=== PATIENT | male | born 1965 | race African-American/Black ===

== ENCOUNTER 2017-04-24 23:06 | Emergency (ER) | payer SELFPAY ==
[~2017-04-24] VITALS: Ht 170.2 cm; Wt 75.0 kg
[2017-04-24 23:12] VITALS: TEMP 37.7; Ht 170.2 cm; Wt 75.0 kg
[2017-04-24] MEDS ORDERED: ALBUT/IPRATROP 3MG/0.5MG NEB 3 ML VIAL INH STA (23:20)
[2017-04-25 00:09] LABS: BASO % 0.4 %; BASO ABS # 0.02 K/uL (0-0.2); EOS % 3.7 %; EOS ABS # 0.18 K/uL (0-0.5); HEMATOCRIT 37.8 % (42-52); HEMOGLOBIN 13.3 g/dL (14.0-18.0); IG# 0.01 K/uL (0.00-0.02); LYMPH % 27.6 %; LYMPH ABS # 1.33 K/uL (1.2-3.4); MEAN CELL VOLUME 85.1 fL (80-100); MEAN CORPUSCULAR HGB CONC 35.2 g/dl (32-36); MEAN PLATELET VOLUME 10.4 fL (7.4-10.4); MONO % 15.4 %; MONO ABS # 0.74 K/uL (0.11-0.59); NEUT % 52.7 %; NEUT ABS # 2.54 K/uL (1.4-6.5); PLATELET COUNT 194 K/uL (130-400); RED CELL DISTRIBUTION WIDTH CV 12.3 % (11.5-14.5); RED CELL DISTRIBUTION WIDTH SD 38.3 fL (36.4-46.3); WHITE BLOOD COUNT 4.82 K/uL (4.8-10.8)
[2017-04-25 00:27] LABS: ALBUMIN 3.3 gm/dl (3.4-5.0); ALT/SGPT 35 U/L (12-78); AST/SGOT 20 U/L (15-37); BLOOD UREA NITROGEN 15 mg/dl (7-18); CALCIUM 8.9 mg/dl (8.5-10.1); CARBON DIOXIDE 26 mmol/L (21-32); CREATININE 1.29 mg/dl (0.60-1.40); GLUCOSE 188 mg/dl (70-99); POTASSIUM 4.2 mmol/L (3.5-5.1); SODIUM 133 mmol/L (136-145)
[2017-04-25 00:30] LABS: ALKALINE PHOSPHATASE 118 U/L (45-117); TOTAL PROTEIN 7.4 gm/dl (6.4-8.2)
--- NOTE | 2017-04-25 01:11 | EMERGENCY ROOM VISIT NOTE ---
History Report prepared by Douglas: Pito [place] Under the Supervision of: Dr. Kateryna Painting M.D. First contact with patient: 23:16 Chief Complaint: COUGH Stated Complaint: CANT BREATH,COUGH History of Present Illness The patient is a 52 year old male who presents to the Emergency Room with complaints of a persistent cough beginning four days ago. He also complains of shortness of breath, lower abdominal pain, and fevers. He states that his symptoms have been preventing him from sleeping. The patient states that his cough is "uncontrollable". He is not a smoker. He has a history of diabetes and states that his blood sugar was 260 recently. Source of History: patient Onset: Four days ago Quality: other (cough) Timing: other (persistent) Associated Symptoms: + fevers, + SOB, + abdominal pain (lower) Review of Systems See HPI for pertinent positives & negatives. A total of 10 systems reviewed and were otherwise negative. Past Medical & Surgical Medical Problems: (1) Diabetes mellitus Family History No pertinent family history stated. Social History Smoking Status: Never Smoker Alcohol Use: none Marital Status: Housing Status: lives with family Occupation Status: unemployed Current/Historical Medications Scheduled Carvedilol (Coreg), 50 MG PO DAILY Esomeprazole Magnesium (Nexium), 40 MG PO DAILY Gabapentin (Neurontin), 300 MG PO HS Insulin Glargine (Lantus Solostar), 45 UNITS SC QPM Insulin Lispro (Human) (Humalog), SQ TIDM Lisinopril (Zestril), 40 MG PO DAILY Scheduled PRN Amlodipine (Norvasc), 10 MG PO DAILY PRN for htn Allergies Coded Allergies: Acetaminophen (Verified Adverse Reaction, Unknown, upset stomach, 04/24/17 ) Physical Exam Vital Signs Date Time Temp Pulse Resp B/P (MAP) Pulse Ox O2 Delivery O2 Flow Rate FiO2 04/25/17 01:23 86 18 133/76 96 04/25/17 00:43 84 16 125/74 96 Room Air 04/25/17 00:03 85 04/24/17 23:17 93 Room Air 04/24/17 23:12 37.7 96 18 122/79 95 Room Air Physical Exam Vital signs reviewed. General: Well-appearing male, in no significant distress. Malodorous. Disheveled , clothes appear dirty. HEENT: No scleral icterus, PERRLA, neck supple. Atraumatic. Cardiovascular: Regular rate and rhythm, no extra sounds. Pulmonary: Faint scattered wheezes bilaterally. Cough noted. Abdomen: Soft, nontender, nondistended, positive bowel sounds. Musculoskeletal: Atraumatic, no peripheral edema. Neurologic: Patient awake alert and oriented x 3, full strength in all 4 extremities. Cranial nerves 2 through 12 grossly intact. Skin: Warm, dry, no rash Medical Decision & Procedures ER Provider Diagnostic Interpretation: Two View Chest X-ray interpreted by me: Poor inspiratory effort. No focal lung consolidation. No failure appreciated. Laboratory Results 04/25/17 00:00 Red Blood Count 4.44, Mean Corpuscular Volume 85.1, Mean Corpuscular Hemoglobin 30.0, Mean Corpuscular Hemoglobin Concent 35.2, Mean Platelet Volume 10.4, Neutrophils (%) (Auto) 52.7, Lymphocytes (%) (Auto) 27.6, Monocytes (%) (Auto) 15.4, Eosinophils (%) (Auto) 3.7, Basophils (%) (Auto) 0.4, Neutrophils # (Auto ) 2.54, Lymphocytes # (Auto) 1.33, Monocytes # (Auto) 0.74, Eosinophils # (Auto ) 0.18, Basophils # (Auto) 0.02 04/25/17 00:00 Test 04/24/17 23:28 04/25/17 00:00 Bedside Glucose 289 mg/dl (70-99) White Blood Count 4.82 K/uL (4.8-10.8) Red Blood Count 4.44 M/uL (4.7-6.1) Hemoglobin 13.3 g/dL (14.0-18.0) Hematocrit 37.8 % (42-52) Mean Corpuscular Volume 85.1 fL (80-100) Mean Corpuscular Hemoglobin 30.0 pg (25-34) Mean Corpuscular Hemoglobin Concent 35.2 g/dl (32-36) Platelet Count 194 K/uL (130-400) Mean Platelet Volume 10.4 fL (7.4-10.4) Neutrophils (%) (Auto) 52.7 % Lymphocytes (%) (Auto) 27.6 % Monocytes (%) (Auto) 15.4 % Eosinophils (%) (Auto) 3.7 % Basophils (%) (Auto) 0.4 % Neutrophils # (Auto) 2.54 K/uL (1.4-6.5) Lymphocytes # (Auto) 1.33 K/uL (1.2-3.4) Monocytes # (Auto) 0.74 K/uL (0.11-0.59) Eosinophils # (Auto) 0.18 K/uL (0-0.5) Basophils # (Auto) 0.02 K/uL (0-0.2) RDW Standard Deviation 38.3 fL (36.4-46.3) RDW Coefficient of Variation 12.3 % (11.5-14.5) Immature Granulocyte % (Auto) 0.2 % Immature Granulocyte # (Auto) 0.01 K/uL (0.00-0.02) Anion Gap 5.0 mmol/L (3-11) Est Creatinine Clear Calc Drug Dose 61.9 ml/min Estimated GFR () 72.9 Estimated GFR (Non- 62.9 BUN/Creatinine Ratio 11.9 (10-20) Calcium Level 8.9 mg/dl (8.5-10.1) Total Bilirubin 0.3 mg/dl (0.2-1) Direct Bilirubin < 0.1 mg/dl (0-0.2) Aspartate Amino Transf (AST/SGOT) 20 U/L (15-37) Alanine Aminotransferase (ALT/SGPT) 35 U/L (12-78) Alkaline Phosphatase 118 U/L (45-117) Total Protein 7.4 gm/dl (6.4-8.2) Albumin 3.3 gm/dl (3.4-5.0) Laboratory results per my review. Medications Administered Medications (Trade) Dose Ordered Sig/Lisseth Route Start Time Stop Time Status Last Admin Dose Admin Albuterol/ Ipratropium (Duoneb) 3 ml NOW STAT INH 04/24/17 23:20 04/24/17 23:23 DC 04/24/17 23:30 3 ML ED Course 2319: Past medical records reviewed. The patient was evaluated in room B3B. A complete history and physical examination was performed. 2320: Ordered DuoNeb 3 mL INH. 0110: Upon reevaluation, the patient appeared to have improvement of his symptoms. I discussed findings with him. He verbalized agreement of the treatment plan. 0115: Ordered Hycodan Elix Homepack 5/1.5 mg/5 mL PO, Albuterol 2 puffs INH. The patient was discharged home. Medical Decision Differential diagnosis: Etiologies such as infections, reactive airway disease, pneumonia, pneumothorax , COPD, CHF, cardiac ischemia, pulmonary embolism, musculoskeletal, gastrointestinal, as well as others were entertained. This patient was in evaluated and appeared to be in no significant distress. IV access was obtained and laboratory work was drawn. The patient was found to be in no respiratory distress. He was given a DuoNeb treatment. Chest x-ray is clear. Patient's laboratory work is unrevealing. The patient will be discharged with an albuterol inhaler and Hycodan cough syrup. He was advised that this will take several days to a week to improve. Patient will follow-up with his PCP and return to the ER for worsening of symptoms or any medical concerns. Medication Reconcilliation Current Medication List: was personally reviewed by me Blood Pressure Screening Patient's blood pressure: Normal blood pressure Blood pressure disposition: Did not require urgent referral Impression Primary Impression: Reactive airway disease with wheezing Scribe Attestation The scribe's documentation has been prepared under my direction and personally reviewed by me in its entirety. I confirm that the note above accurately reflects all work, treatment, procedures, and medical decision making performed by me. Departure Information Dispostion Home / Self-Care Forms HOME CARE DOCUMENTATION FORM, IMPORTANT VISIT INFORMATION Patient Instructions My [facility] Additional Instructions Diagnosis: Reactive airway disease with wheezing Continue albuterol inhaler 2 puffs every 4 hours as needed for wheezing or cough. Hycodan syrup 5-10 mL's every 6 hours as needed for cough. Do not drive after taking this medication. Follow-up with your physician upon return home. Return to the ER for worsening of symptoms or any medical concerns.
[2017-04-25] MEDS ORDERED: HYCODAN 60ML BOTTLE HOMEPACK PO ONE (01:15)
[2017-04-25] MEDS ORDERED: ALBUTEROL HFA 8 GM INHALER INH ONE (01:15)
[2017-04-25 01:23] VITALS: BP 133/76; PULSE 86; O2SAT 96
[2017-04-25] MEDS ORDERED: INSDGIPEN SC (01:26)
[2017-04-25] MEDS ORDERED: AMLO10TA3 PO (01:26)
[2017-04-25] MEDS ORDERED: INSU100I SQ (01:26)
[2017-04-25] MEDS ORDERED: GABA-113 PO (01:26)
[2017-04-25] MEDS ORDERED: LISI40TA PO (01:26)
[2017-04-25] MEDS ORDERED: CARV25TA2 PO (01:27)
[2017-04-25] MEDS ORDERED: NXM/40 PO (01:27)
--- NOTE | 2017-04-25 06:21 | DIAGNOSTIC IMAGING REPORT ---
CHEST 2 VIEWS ROUTINE CLINICAL HISTORY: 52 years-old Male presenting with cough, fever, dyspnea. TECHNIQUE: PA and lateral views of the chest were obtained. COMPARISON: None. FINDINGS: Left subclavian implanted cardiac defibrillator with lead to the right ventricular apex. Elevation of the hemidiaphragms with resulting mildly low lung volumes and hypoventilatory changes. Prominent lung markings at the lung bases. Trace bilateral pleural effusions may be present. No pneumothorax. Degenerative changes of the thoracic spine. Moderate stool burden. IMPRESSION: 1. Mildly low lung volumes with hypoventilatory changes. Findings could also suggest possible volume overload. 2. Trace bilateral pleural effusions suspected. 3. Moderate stool burden. Electronically signed by: Nate Szymanski M.D. 04/25/2017 6:19 AM Dictated Date/Time: 04/25/2017 6:18 AM
== END 2017-04-25 01:24 | disposition home or self-care (01) ==
LOC: C.EDB 23:08
DX: J45.909 Unspecified asthma, uncomplicated (principal); E11.9 Type 2 diabetes mellitus without complications; Z79.4 Long term (current) use of insulin

== ENCOUNTER 2021-10-02 16:41 | Observation (INO) ==
[2021-10-02] MEDS ORDERED: ONDANSETRON INJ 2 MG/ML 2 ML VIAL ONE (16:45)
[2021-10-02] MEDS ORDERED: DEXTROSE 50% 50 ML SYRINGE IV STA (17:07)
[2021-10-02] MEDS ORDERED: ONDANSETRON INJ 2 MG/ML 2 ML VIAL IV STA (17:07)
[2021-10-02] MEDS ORDERED: SODIUM CHLORIDE 0.9% 1000ML 2,000 ML IV ONE (17:07)
--- NOTE | 2021-10-02 17:09 | Emergency Department Note ---
Impression & Plan Hypoglycemia, Vomiting, Abdominal pain, Headache, Acute hypokalemia, MICKEY (acute kidney injury) ED Provider Note NAME: MANAV XIE AGE: 56 SEX: M : 1965 ARRIVES VIA: Ambulance INFORMANT: Patient ED PROVIDER(S): Demetrius Dawn DO CHIEF COMPLAINT: abdominal pain HPI: Patient is a 56-year-old male with past medical history of cardiomyopathy which was nonischemic, defibrillator placed, diabetic, hypertension, hyperlipidemia who presents to the ER from the [facility] parking lot. He notes he has been vomiting for the past hour. He is complaining of abdominal pain and headache. Abdominal pain started with nausea and vomiting. The headache started after all the vomiting. He denies any dysuria, urgency, or frequency. He is able to admit that he is a diabetic and he did take his insulin today. Denies any chest pain or shortness of breath. No other exacerbating or remitting factors. ROS: See above HPI for pertinent positives & negatives. A total of 10 systems reviewed and were otherwise negative. PAST MEDICAL HISTORY:See Below PAST SURGICAL HISTORY:See Below FAMILY HISTORY:See Below SOCIAL HISTORY:See Below HOME MEDICATIONS:See Below ALLERGIES:See Below VITALS:See Below PHYSICAL EXAMINATION: GENERAL: Laying in bed disheveled, holding abdomen, EYE EXAM: normal conjunctiva. OROPHARYNX: no exudate, no erythema, lips, buccal mucosa, and tongue normal and mucous membranes are moist NECK: supple, no nuchal rigidity, no adenopathy, non-tender LUNGS: Clear to auscultation. Normal chest wall mechanics HEART: no murmurs, S1 normal and S2 normal ABDOMEN: abdomen soft, non-tender, normo-active bowel sounds, no masses, no rebound or guarding. UPPER EXTREMITIES: upper extremities are grossly normal. LOWER EXTREMITIES: No pitting edema. NEURO EXAM: Tired but oriented to person place year and location cranial nerves II-XII grossly intact, normal speech, no gross weakness of arms, no gross weakness of legs. No drift. Finger to nose intact. Gross sensation intact. MEDICAL DECISION MAKING: Patient is a 56-year-old male who presents ER for above-stated complaint. IV was established blood work was obtained. Labs show no significant leukocytosis or anemia. BMP without mild hyponatremia. Hypokalemia at 3.2. Creatinine was elevated 2.4 off of a baseline of 1.2. He had multiple bouts of hypoglycemia and was initially given orange juice. He still continued to bottom out and consequently was given D50. He was then placed on D10 and this was titrated up from 100-125. Bilirubin LFTs and lipase is unremarkable. CT head abdomen pelvis was unremarkable with the exception of airspace opacities in the lower chest. Patient was given IV fluids as well as IV Rocephin and azithromycin and was updated bedside and discussed with hospitalist for further evaluation. Triage Nursing notes reviewed. Limited review of prior medical records performed Vital Signs: reviewed and remarkable for HTN Differential diagnosis: Differential diagnoses includes but is not limited to gastritis, peptic ulcer disease, GERD, gallbladder disease, pancreatitis, small bowel obstruction, acute coronary syndrome, pericarditis, ischemic bowel, irritable bowel disease, irr itable bowel syndrome, appendicitis, diverticulitis, malignancy, hernia, urinary tract infection, torsion, perforation, trauma, infectious. ER treatment provided: See below Diagnostics interpreted by me: ECG: none Cardiac Monitoring: An order was placed for continuous cardiac monitoring. The monitor shows a rate of 90 with sinus rhythm. Laboratory studies: As stated above and show below. Imaging studies: CT head and abdomen pelvis was unremarkable with exception of questionable infiltrates in the chest in the lower lung benoit Consultation(s): Discussed with hospitalist for further evaluation Procedures: none Critical Care: I have personally spent 32 minutes of critical care time in the direct management of this patient. This includes bedside care, interpretation of diagnostic studies, and testing, discussion with consultants, patient, and family members, and other required patient management activities. This 32 minutes is in excess of all separately billable procedures. Past Med/Surg History Medical History Acid reflux disease Cardiac defibrillator in place Cardiomyopathy, nonischemic Cerumen impaction Depression Diabetes mellitus Diabetes mellitus type 2, uncontrolled Diabetic peripheral neuropathy Hearing decreased Hyperlipidemia Hypertension His blood pressure is somewhat labile- I am not certain if he is taking all of meds as directed. I will add HCTZ 12.5 to hopefully stabilze things a little and provide some reassurance Irregular heartbeat Pelvic pain in male Proteinuria Psoriasis Psoriatic arthropathy Family History Father Diabetes Cardiac disorder Hypertension Mother Cancer Social History Smoking Status: Never smoker Preferred Language: Greenlandic Feels Safe at Home: Yes Allergies Allergies Allergy/AdvReac Type Severity Reaction Status Date / Time peanut Allergy Severe Anaphylaxis Verified 10/02/21 17:24 prednisone Allergy Severe SEVERE GI Verified 10/02/21 17:24 UPSET acetaminophen AdvReac Intermediate upset Verified 10/02/21 17:24 stomach Home Meds Home Medications Medication Instructions Recorded Confirmed gabapentin 300 mg capsule 300 mg PO HS 10/22/18 10/02/21 imipramine pamoate 100 mg capsule 100 mg PO HS 10/22/18 10/02/21 insulin glargine 100 unit/mL 45 unit SUBCUT HS 10/22/18 10/02/21 subcutaneous solution (Lantus U-100 Insulin) omeprazole 20 mg tablet,delayed 20 mg PO DAILY 10/22/18 10/02/21 release adalimumab 40 mg/0.4 mL See Rx Instructions .ROUTE .COMPLEX 08/22/21 10/02/21 subcutaneous pen kit (Humira(CF) Pen) amlodipine 10 mg tablet 10 mg PO DAILY 08/22/21 10/02/21 carvedilol 25 mg tablet 25 mg PO BID 08/22/21 10/02/21 insulin lispro 100 unit/mL 12 - 14 unit SUBCUT AC 08/22/21 10/02/21 subcutaneous pen (Humalog KwikPen (U-100) Insulin) meclizine 25 mg tablet 25 mg PO TID PRN 08/22/21 10/02/21 tadalafil 20 mg tablet (Cialis) 20 mg PO DAILY PRN 08/22/21 10/02/21 Previous Rx's Medication Instructions Recorded hydrochlorothiazide 12.5 mg tablet 12.5 mg PO DAILY #30 tab 10/27/18 lisinopril 40 mg tablet 40 mg PO DAILY #90 tab 02/17/19 Results & Data (ED) Vital Signs Vital Signs - 24 hr 10/02/21 16:35 10/02/21 16:50 10/02/21 17:00 Temperature Temperature Source Pulse Rate 66 64 54 L Pulse Rate [Apical] Pulse Rate from SpO2 Sensor 60 54 L Pulse Rhythm Regular Pulse Rhythm [Apical] Pulse Strength Normal Pulse Strength [Apical] Respiratory Rate 21 20 23 Respiratory Effort / Characteristics Non-Labored Respiratory Depth Normal Blood Pressure 150/87 H Blood Pressure [Right Arm] Blood Pressure Mean 108 Blood Pressure Mean [Right Arm] Blood Pressure Position Sitting Pulse Oximetry 95 96 91 Oxygen Delivery Method Room Air Oxygen Flow Rate Sepsis Recent Fever Within 48 Hours No Sepsis New/Unexplained Change in Mental Status N/A Sepsis Action Taken by Nursing No Action Required 10/02/21 17:05 10/02/21 17:10 10/02/21 17:16 Temperature Temperature Source Pulse Rate 56 L 58 L 52 L Pulse Rate [Apical] Pulse Rate from SpO2 Sensor 56 L 58 L 52 L Pulse Rhythm Pulse Rhythm [Apical] Pulse Strength Pulse Strength [Apical] Respiratory Rate 20 16 22 Respiratory Effort / Characteristics Respiratory Depth Blood Pressure 161/83 H 187/87 H Blood Pressure [Right Arm] Blood Pressure Mean 109 120 Blood Pressure Mean [Right Arm] Blood Pressure Position Pulse Oximetry 95 95 95 Oxygen Delivery Method Oxygen Flow Rate Sepsis Recent Fever Within 48 Hours Sepsis New/Unexplained Change in Mental Status Sepsis Action Taken by Nursing 10/02/21 17:20 10/02/21 17:29 10/02/21 17:30 Temperature Temperature Source Pulse Rate 54 L 56 L 53 L Pulse Rate [Apical] Pulse Rate from SpO2 Sensor 54 L 53 L Pulse Rhythm Pulse Rhythm [Apical] Pulse Strength Pulse Strength [Apical] Respiratory Rate 21 18 17 Respiratory Effort / Characteristics Respiratory Depth Blood Pressure 126/59 L Blood Pressure [Right Arm] Blood Pressure Mean 81 Blood Pressure Mean [Right Arm] Blood Pressure Position Pulse Oximetry 89 L 93 92 Oxygen Delivery Method Room Air Oxygen Flow Rate Sepsis Recent Fever Within 48 Hours Sepsis New/Unexplained Change in Mental Status Sepsis Action Taken by Nursing 10/02/21 17:40 10/02/21 17:45 10/02/21 17:50 Temperature Temperature Source Pulse Rate 58 L 58 L 62 Pulse Rate [Apical] Pulse Rate from SpO2 Sensor 58 L 58 L 62 Pulse Rhythm Pulse Rhythm [Apical] Pulse Strength Pulse Strength [Apical] Respiratory Rate 19 19 21 Respiratory Effort / Characteristics Respiratory Depth Blood Pressure 157/89 H Blood Pressure [Right Arm] Blood Pressure Mean 111 Blood Pressure Mean [Right Arm] Blood Pressure Position Pulse Oximetry 95 96 99 Oxygen Delivery Method Oxygen Flow Rate Sepsis Recent Fever Within 48 Hours Sepsis New/Unexplained Change in Mental Status Sepsis Action Taken by Nursing 10/02/21 18:00 10/02/21 18:10 10/02/21 18:15 Temperature Temperature Source Pulse Rate 54 L 54 L 54 L Pulse Rate [Apical] Pulse Rate from SpO2 Sensor 53 L 53 L 54 L Pulse Rhythm Pulse Rhythm [Apical] Pulse Strength Pulse Strength [Apical] Respiratory Rate 14 16 18 Respiratory Effort / Characteristics Respiratory Depth Blood Pressure 128/72 121/61 Blood Pressure [Right Arm] Blood Pressure Mean 90 81 Blood Pressure Mean [Right Arm] Blood Pressure Position Pulse Oximetry 97 94 93 Oxygen Delivery Method Oxygen Flow Rate Sepsis Recent Fever Within 48 Hours Sepsis New/Unexplained Change in Mental Status Sepsis Action Taken by Nursing 10/02/21 18:20 10/02/21 18:30 10/02/21 18:36 Temperature Temperature Source Pulse Rate 53 L 52 L Pulse Rate [Apical] 57 L Pulse Rate from SpO2 Sensor Pulse Rhythm Pulse Rhythm [Apical] Pulse Strength Pulse Strength [Apical] Respiratory Rate 14 4 L 16 Respiratory Effort / Characteristics Respiratory Depth Normal Blood Pressure 128/63 Blood Pressure [Right Arm] 128/63 Blood Pressure Mean 84 Blood Pressure Mean [Right Arm] 84 Blood Pressure Position Pulse Oximetry 97 Oxygen Delivery Method Room Air Oxygen Flow Rate Sepsis Recent Fever Within 48 Hours Sepsis New/Unexplained Change in Mental Status Sepsis Action Taken by Nursing 10/02/21 18:40 10/02/21 18:45 10/02/21 18:50 Temperature Temperature Source Pulse Rate 54 L 54 L 56 L Pulse Rate [Apical] Pulse Rate from SpO2 Sensor 53 L 52 L Pulse Rhythm Pulse Rhythm [Apical] Pulse Strength Pulse Strength [Apical] Respiratory Rate 12 8 L 13 Respiratory Effort / Characteristics Respiratory Depth Blood Pressure 134/66 Blood Pressure [Right Arm] Blood Pressure Mean 88 Blood Pressure Mean [Right Arm] Blood Pressure Position Pulse Oximetry 99 99 Oxygen Delivery Method Oxygen Flow Rate Sepsis Recent Fever Within 48 Hours Sepsis New/Unexplained Change in Mental Status Sepsis Action Taken by Nursing 10/02/21 18:54 10/02/21 19:12 10/02/21 19:14 Temperature 36.5 C Temperature Source Oral Pulse Rate 58 L Pulse Rate [Apical] Pulse Rate from SpO2 Sensor 61 Pulse Rhythm Pulse Rhythm [Apical] Pulse Strength Pulse Strength [Apical] Respiratory Rate 25 H 18 Respiratory Effort / Characteristics Respiratory Depth Blood Pressure 195/95 H Blood Pressure [Right Arm] Blood Pressure Mean 128 Blood Pressure Mean [Right Arm] Blood Pressure Position Pulse Oximetry 97 Oxygen Delivery Method Oxygen Flow Rate Sepsis Recent Fever Within 48 Hours Sepsis New/Unexplained Change in Mental Status Sepsis Action Taken by Nursing 10/02/21 19:15 10/02/21 19:20 10/02/21 19:30 Temperature Temperature Source Pulse Rate 60 60 59 L Pulse Rate [Apical] Pulse Rate from SpO2 Sensor 57 L 59 L 59 L Pulse Rhythm Pulse Rhythm [Apical] Pulse Strength Pulse Strength [Apical] Respiratory Rate 19 23 22 Respiratory Effort / Characteristics Respiratory Depth Blood Pressure 190/88 H Blood Pressure [Right Arm] Blood Pressure Mean 122 Blood Pressure Mean [Right Arm] Blood Pressure Position Pulse Oximetry 96 97 98 Oxygen Delivery Method Oxygen Flow Rate Sepsis Recent Fever Within 48 Hours Sepsis New/Unexplained Change in Mental Status Sepsis Action Taken by Nursing 10/02/21 19:40 10/02/21 19:45 10/02/21 19:50 Temperature Temperature Source Pulse Rate 64 61 66 Pulse Rate [Apical] Pulse Rate from SpO2 Sensor 64 62 65 Pulse Rhythm Pulse Rhythm [Apical] Pulse Strength Pulse Strength [Apical] Respiratory Rate 20 19 18 Respiratory Effort / Characteristics Respiratory Depth Blood Pressure 173/88 H Blood Pressure [Right Arm] Blood Pressure Mean 116 Blood Pressure Mean [Right Arm] Blood Pressure Position Pulse Oximetry 97 89 L 100 Oxygen Delivery Method Oxygen Flow Rate Sepsis Recent Fever Within 48 Hours Sepsis New/Unexplained Change in Mental Status Sepsis Action Taken by Nursing 10/02/21 20:00 10/02/21 20:10 10/02/21 20:16 Temperature Temperature Source Pulse Rate 62 81 77 Pulse Rate [Apical] 62 Pulse Rate from SpO2 Sensor Pulse Rhythm Pulse Rhythm [Apical] Pulse Strength Pulse Strength [Apical] Respiratory Rate 18 23 24 Respiratory Effort / Characteristics Respiratory Depth Blood Pressure 223/150 H Blood Pressure [Right Arm] 182/95 H Blood Pressure Mean 174 Blood Pressure Mean [Right Arm] 124 Blood Pressure Position Pulse Oximetry 99 Oxygen Delivery Method Room Air Oxygen Flow Rate Sepsis Recent Fever Within 48 Hours Sepsis New/Unexplained Change in Mental Status Sepsis Action Taken by Nursing 10/02/21 22:00 Temperature 36.8 C Temperature Source Oral Pulse Rate Pulse Rate [Apical] 93 H Pulse Rate from SpO2 Sensor Pulse Rhythm Pulse Rhythm [Apical] Regular Pulse Strength Pulse Strength [Apical] Normal Respiratory Rate 18 Respiratory Effort / Characteristics Non-Labored Respiratory Depth Normal Blood Pressure Blood Pressure [Right Arm] 174/84 H Blood Pressure Mean Blood Pressure Mean [Right Arm] 114 Blood Pressure Position Pulse Oximetry 98 Oxygen Delivery Method Nasal Cannula Oxygen Flow Rate 2 Sepsis Recent Fever Within 48 Hours Sepsis New/Unexplained Change in Mental Status Sepsis Action Taken by Nursing Laboratory Data Result diagrams: 10/02/21 17:03 10/02/21 17:03 Lab Results 10/02/21 10/02/21 10/02/21 Range/Units 16:54 17:03 17:03 WBC 6.76 (4.8-10.8) K/uL RBC 5.16 (4.7-6.1) M/uL Hgb 16.1 (14.0-18.0) g/dL POC Hgb (14.0-18.0) g/dl Hct 44.1 (42-52) % POC Hct (42-52) % MCV 85.5 (80-100) fL MCH 31.2 (25-34) pg MCHC 36.5 H (32-36) g/dL RDW Std Deviation 38.7 (36.4-46.3) fL RDW Coeff of Saulo 12.5 (11.5-14.5) % Plt Count 309 (130-400) K/uL MPV 11.1 H (7.4-10.4) fL Immature Gran % (Auto) 0.1 % Neut % (Auto) 45.0 % Lymph % (Auto) 39.9 % Lanier % (Auto) 13.9 % Eos % (Auto) 1.0 % Baso % (Auto) 0.1 % Neut # (Auto) 3.03 (1.4-6.5) K/uL Lymph # (Auto) 2.70 (1.2-3.4) K/uL Lanier # (Auto) 0.94 H (0.11-0.59) K/uL Eos # (Auto) 0.07 (0-0.5) K/uL Baso # (Auto) 0.01 (0-0.2) K/uL Immature Gran # (Auto) 0.01 (0.00-0.02) K/uL POC Sodium (135-144) mmol/L Sodium 134 L (136-145) mmol/L POC Potassium (3.3-5.0) mmol/L Potassium 3.2 L (3.5-5.1) mmol/L POC Chloride (101-112) mmol/L Chloride 95 L (98-107) mmol/L Carbon Dioxide 26 (21-32) mmol/L POC Total CO2 (24-31) mmol/L Anion Gap 13 H (3-11) POC Anion Gap (16-25) mmol/L POC BUN (7-18) mg/dl BUN 20 (6-23) mg/dl Creatinine 2.48 H (0.6-1.4) mg/dl POC Creatinine (0.6-1.3) mg/dl Est Cr Clr Drug Dosing 31.8 ml/min Est GFR ( Amer) 32.2 ml/min Est GFR (Non-Af Amer) 27.7 ml/min BUN/Creatinine Ratio 8.1 L (10-20) Glucose 22 L* (70-99(Fasting)) mg/dl POC Glucose 63 L* (70-99) mg/dl POC Glucose (other) (70-99) mg/dl Calcium 10.9 H (8.5-10.1) mg/dl POC Ioniz Calcium Kiran (1.12-1.32) mmol/l Total Bilirubin 0.7 (0.2-1.0) mg/dl AST 23 (13-39) U/L ALT 22 (7-52) U/L Alkaline Phosphatase 122 H (34-104) U/L Total Protein 8.7 H (6.0-8.3) gm/dl Albumin 4.6 (3.4-5.0) gm/dl Globulin 4.1 H (2.5-4.0) gm/dl Albumin/Globulin Ratio 1.1 (0.9-2) Lipase 34 (11-82) U/L Procalcitonin (0-0.5) ng/ml 10/02/21 10/02/21 10/02/21 Range/Units 17:03 17:16 17:20 WBC (4.8-10.8) K/uL RBC (4.7-6.1) M/uL Hgb (14.0-18.0) g/dL POC Hgb 16.0 (14.0-18.0) g/dl Hct (42-52) % POC Hct 47 (42-52) % MCV (80-100) fL MCH (25-34) pg MCHC (32-36) g/dL RDW Std Deviation (36.4-46.3) fL RDW Coeff of Saulo (11.5-14.5) % Plt Count (130-400) K/uL MPV (7.4-10.4) fL Immature Gran % (Auto) % Neut % (Auto) % Lymph % (Auto) % Lanier % (Auto) % Eos % (Auto) % Baso % (Auto) % Neut # (Auto) (1.4-6.5) K/uL Lymph # (Auto) (1.2-3.4) K/uL Lanier # (Auto) (0.11-0.59) K/uL Eos # (Auto) (0-0.5) K/uL Baso # (Auto) (0-0.2) K/uL Immature Gran # (Auto) (0.00-0.02) K/uL POC Sodium 137 (135-144) mmol/L Sodium (136-145) mmol/L POC Potassium 3.1 L (3.3-5.0) mmol/L Potassium (3.5-5.1) mmol/L POC Chloride 98 L (101-112) mmol/L Chloride (98-107) mmol/L Carbon Dioxide (21-32) mmol/L POC Total CO2 27 (24-31) mmol/L Anion Gap (3-11) POC Anion Gap 15.0 L (16-25) mmol/L POC BUN 21 H (7-18) mg/dl BUN (6-23) mg/dl Creatinine (0.6-1.4) mg/dl POC Creatinine 2.4 H (0.6-1.3) mg/dl Est Cr Clr Drug Dosing ml/min Est GFR ( Amer) ml/min Est GFR (Non-Af Amer) ml/min BUN/Creatinine Ratio (10-20) Glucose (70-99(Fasting)) mg/dl POC Glucose 62 L* (70-99) mg/dl POC Glucose (other) 26 L* (70-99) mg/dl Calcium (8.5-10.1) mg/dl POC Ioniz Calcium Kiran 1.22 (1.12-1.32) mmol/l Total Bilirubin (0.2-1.0) mg/dl AST (13-39) U/L ALT (7-52) U/L Alkaline Phosphatase (34-104) U/L Total Protein (6.0-8.3) gm/dl Albumin (3.4-5.0) gm/dl Globulin (2.5-4.0) gm/dl Albumin/Globulin Ratio (0.9-2) Lipase (11-82) U/L Procalcitonin 0.05 (0-0.5) ng/ml 10/02/21 10/02/21 10/02/21 Range/Units 17:40 18:31 20:14 WBC (4.8-10.8) K/uL RBC (4.7-6.1) M/uL Hgb (14.0-18.0) g/dL POC Hgb (14.0-18.0) g/dl Hct (42-52) % POC Hct (42-52) % MCV (80-100) fL MCH (25-34) pg MCHC (32-36) g/dL RDW Std Deviation (36.4-46.3) fL RDW Coeff of Saulo (11.5-14.5) % Plt Count (130-400) K/uL MPV (7.4-10.4) fL Immature Gran % (Auto) % Neut % (Auto) % Lymph % (Auto) % Lanier % (Auto) % Eos % (Auto) % Baso % (Auto) % Neut # (Auto) (1.4-6.5) K/uL Lymph # (Auto) (1.2-3.4) K/uL Lanier # (Auto) (0.11-0.59) K/uL Eos # (Auto) (0-0.5) K/uL Baso # (Auto) (0-0.2) K/uL Immature Gran # (Auto) (0.00-0.02) K/uL POC Sodium (135-144) mmol/L Sodium (136-145) mmol/L POC Potassium (3.3-5.0) mmol/L Potassium (3.5-5.1) mmol/L POC Chloride (101-112) mmol/L Chloride (98-107) mmol/L Carbon Dioxide (21-32) mmol/L POC Total CO2 (24-31) mmol/L Anion Gap (3-11) POC Anion Gap (16-25) mmol/L POC BUN (7-18) mg/dl BUN (6-23) mg/dl Creatinine (0.6-1.4) mg/dl POC Creatinine (0.6-1.3) mg/dl Est Cr Clr Drug Dosing ml/min Est GFR ( Amer) ml/min Est GFR (Non-Af Amer) ml/min BUN/Creatinine Ratio (10-20) Glucose (70-99(Fasting)) mg/dl POC Glucose 91 78 67 L* (70-99) mg/dl POC Glucose (other) (70-99) mg/dl Calcium (8.5-10.1) mg/dl POC Ioniz Calcium Kiran (1.12-1.32) mmol/l Total Bilirubin (0.2-1.0) mg/dl AST (13-39) U/L ALT (7-52) U/L Alkaline Phosphatase (34-104) U/L Total Protein (6.0-8.3) gm/dl Albumin (3.4-5.0) gm/dl Globulin (2.5-4.0) gm/dl Albumin/Globulin Ratio (0.9-2) Lipase (11-82) U/L Procalcitonin (0-0.5) ng/ml 10/02/21 10/02/21 Range/Units 20:38 22:30 WBC (4.8-10.8) K/uL RBC (4.7-6.1) M/uL Hgb (14.0-18.0) g/dL POC Hgb (14.0-18.0) g/dl Hct (42-52) % POC Hct (42-52) % MCV (80-100) fL MCH (25-34) pg MCHC (32-36) g/dL RDW Std Deviation (36.4-46.3) fL RDW Coeff of Saulo (11.5-14.5) % Plt Count (130-400) K/uL MPV (7.4-10.4) fL Immature Gran % (Auto) % Neut % (Auto) % Lymph % (Auto) % Lanier % (Auto) % Eos % (Auto) % Baso % (Auto) % Neut # (Auto) (1.4-6.5) K/uL Lymph # (Auto) (1.2-3.4) K/uL Lanier # (Auto) (0.11-0.59) K/uL Eos # (Auto) (0-0.5) K/uL Baso # (Auto) (0-0.2) K/uL Immature Gran # (Auto) (0.00-0.02) K/uL POC Sodium (135-144) mmol/L Sodium (136-145) mmol/L POC Potassium (3.3-5.0) mmol/L Potassium (3.5-5.1) mmol/L POC Chloride (101-112) mmol/L Chloride (98-107) mmol/L Carbon Dioxide (21-32) mmol/L POC Total CO2 (24-31) mmol/L Anion Gap (3-11) POC Anion Gap (16-25) mmol/L POC BUN (7-18) mg/dl BUN (6-23) mg/dl Creatinine (0.6-1.4) mg/dl POC Creatinine (0.6-1.3) mg/dl Est Cr Clr Drug Dosing ml/min Est GFR ( Amer) ml/min Est GFR (Non-Af Amer) ml/min BUN/Creatinine Ratio (10-20) Glucose (70-99(Fasting)) mg/dl POC Glucose 76 225 H (70-99) mg/dl POC Glucose (other) (70-99) mg/dl Calcium (8.5-10.1) mg/dl POC Ioniz Calcium Kiran (1.12-1.32) mmol/l Total Bilirubin (0.2-1.0) mg/dl AST (13-39) U/L ALT (7-52) U/L Alkaline Phosphatase (34-104) U/L Total Protein (6.0-8.3) gm/dl Albumin (3.4-5.0) gm/dl Globulin (2.5-4.0) gm/dl Albumin/Globulin Ratio (0.9-2) Lipase (11-82) U/L Procalcitonin (0-0.5) ng/ml Administered Medications Dextrose (D10w) 1,000 mls @ 100 mls/hr IV .Q10H PANCHO Stop: 11/01/21 17:29 Last Admin: 10/02/21 17:54 Dose: 100 mls/hr Documented by: [id number] Discontinued Medications Dextrose (Dextrose 50% 50 Ml Syringe) 50 ml IV NOW STA Stop: 10/02/21 17:08 Last Admin: 10/02/21 17:23 Dose: 50 ml Documented by: [id number] Sodium Chloride (Nss 1000ml) 2,000 mls @ 999 mls/hr IV .Q2H1M ONE Stop: 10/02/21 19:07 Last Infusion: 10/02/21 18:48 Dose: 0 mls/hr Documented by: [id number] Admin: 10/02/21 17:12 Dose: 999 mls/hr Documented by: [id number] Sodium Chloride (Nss 1000ml) 1,000 mls @ 999 mls/hr IV .Q1H1M ONE Stop: 10/02/21 19:49 Last Infusion: 10/02/21 19:56 Dose: 0 mls/hr Documented by: [id number] Admin: 10/02/21 18:53 Dose: 999 mls/hr Documented by: [id number] Ceftriaxone Sodium (Rocephin) 1,000 mg in 50 mls @ 100 mls/hr IV NOW STA Stop: 10/02/21 20:29 Last Infusion: 10/02/21 21:37 Dose: 0 mls/hr Documented by: [id number] Admin: 10/02/21 20:48 Dose: 100 mls/hr Documented by: [id number] Azithromycin 500 mg/ Dextrose 255 mls @ 125 mls/hr IV ONE ONE Stop: 10/02/21 22:02 Last Admin: 10/02/21 20:48 Dose: 125 mls/hr Documented by: [id number] Morphine Sulfate (Morphine Sulfate 4 Mg/Ml 1 Ml Carp\Vial) 4 mg IV NOW STA Stop: 10/02/21 20:29 Last Admin: 10/02/21 20:48 Dose: 4 mg Documented by: [id number] Ondansetron HCl (Ondansetron Inj 2 Mg/Ml 2 Ml Vial) Confirm Administered Dose 4 mg .ROUTE .STK-MED ONE Stop: 10/02/21 16:46 Last Admin: 10/02/21 17:12 Dose: 4 mg Documented by: [id number] Ondansetron HCl (Ondansetron Inj 2 Mg/Ml 2 Ml Vial) 4 mg IV NOW STA Stop: 10/02/21 17:08 Last Admin: 10/02/21 17:12 Dose: Not Given Documented by: [id number] Potassium Chloride (Potassium Chloride 10 Meq Tabcr) 40 meq PO NOW STA Stop: 10/02/21 21:49 Last Admin: 10/02/21 22:17 Dose: 40 meq Documented by: [id number] Imaging Data Radiologist's Impression: Head CT 10/02/21 17:07 CT SCAN OF THE BRAIN WITHOUT IV CONTRAST CLINICAL HISTORY: Headache. COMPARISON STUDY: CT of the brain dated 11/04/2018. TECHNIQUE: Unenhanced axial CT scan of the brain is performed from the vertex to the skull base. A dose lowering technique was utilized adhering to the principles of ALARA. CT DOSE: 1724.17 mGy.cm FINDINGS: Brain parenchyma: There is mild age advanced involutional change noting mild microangiopathic disease. There is no hemorrhage, mass effect, or evidence of acute territorial ischemia by CT criteria. Agosto-white matter differentiation is preserved. 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 Small chronic lacunar infarcts are also seen in the left basal ganglia. No extra-axial fluid collection is seen. Ventricles, sulci, cisterns: Prominent secondary to involutional change. Intracranial vasculature: There is atherosclerotic calcification of the cavernous carotid and vertebral arteries. Calvarium: Unremarkable. Sinuses and mastoids: The visualized paranasal sinuses are clear. The mastoid air cells are well pneumatized. Orbits: The bony orbits are grossly intact. IMPRESSION: There is no hemorrhage, mass effect, or evidence of acute territorial ischemia by CT criteria. ACT 112: Negative or not required by law. Electronically signed by: Malachi Low M.D. 10/02/2021 7:10 PM Abdomen/Pelvis CT 10/02/21 18:24 CT SCAN OF THE ABDOMEN AND PELVIS WITHOUT IV CONTRAST CLINICAL HISTORY: Generalized abdominal pain. Vomiting. COMPARISON STUDY: No priors. TECHNIQUE: CT scan of the abdomen and pelvis is performed from the lung bases to the proximal femora. Images are reviewed in the axial, sagittal, and coronal planes. IV contrast was not administered for this examination. Note that the examination was performed in suboptimal fashion without oral and IV contrast. A dose lowering technique was utilized adhering to the principles of ALARA. FINDINGS: Lung bases: The heart is enlarged and and without pericardial effusion. Pacemaker leads are noted. Patchy groundglass consolidation is present at both lung bases. No pleural effusion is identified. There is a small to moderate hiatal hernia. Liver: The unenhanced liver is normal in size, contour, and attenuation. There is no intrahepatic biliary ductal dilatation. Gallbladder: Unremarkable. Spleen: Normal in size and attenuation. Pancreas: Unremarkable. Adrenal glands: Unremarkable. Kidneys: The unenhanced kidneys are normal in size and without hydronephrosis. There are at least 5 tiny nonobstructing calculi in the right kidney and at least 4 tiny nonobstructing calculi in the left kidney which measure up to 3 mm. No ureteral stone is seen. An 11 mm cyst is noted in the left kidney. Abdominal vasculature: The abdominal aorta is normal in course and caliber noting mild to moderate atherosclerotic calcification. Bowel: There is moderate colonic fecal retention. No bowel obstruction is seen. The appendix is well-visualized and normal. Peritoneum: There is no intraperitoneal free air or abdominal ascites. There is a fat-containing umbilical hernia. Foci of induration within the ventral abdominal wall are likely to subcutaneous injections. Lymphadenopathy: None. Pelvic viscera: The prostate gland is markedly enlarged and heterogeneous noting median lobe hypertrophy. The bladder wall is thickened and trabeculated indicating chronic outlet obstruction. There are small bilateral fat-containing inguinal hernias. Skeletal structures: No lytic or blastic lesions are seen. IMPRESSION: 1. Patchy groundglass consolidation is seen at both lung bases. The appearance is typical for an infectious/inflammatory pneumonitis and clinical correlation will be required. 2. No acute infectious or inflammatory findings are identified in the abdomen or pelvis. 3. Bilateral nephrolithiasis. 4. Cardiomegaly and cardiac pacemaker. 5. Moderate constipation. 6. Prostatomegaly with evidence of chronic bladder outlet obstruction. 7. Additional findings as above. ACT 112: Negative or not required by law. Electronically signed by: Malachi Low M.D. 10/02/2021 7:21 PM Chest X-Ray 10/02/21 20:00 SINGLE VIEW CHEST CLINICAL HISTORY: Cough. FINDINGS: An AP, portable, upright chest radiograph is compared to study dated 04/25/2017. Correlation is made with abdominal CT performed the same day 10/02/2021. A 2-lead cardiac AICD is unchanged in position and partially obscures the left upper chest. The heart is mildly enlarged. The pulmonary vasculature is noncongested. Mild opacities are seen at the lung bases. There is bibasilar scarring/atelectasis. No large pleural effusion or Pneumothorax is seen. The skeletal structures are osteopenic. The bony thorax is grossly intact. IMPRESSION: 1. There are mild bibasilar airspace opacities. This corresponds to an infectious/inflammatory pneumonitis when correlated with today's CT scan. 2. Cardiomegaly and AICD without radiographic evidence of congestive failure. ACT 112: Negative or not required by law. Electronically signed by: Malachi Low M.D. 10/02/2021 8:18 PM Discharge Plan Visit Data Chief Complaint: Illness ED Provider: Demetrius Dawn Discharge Problem: Hypoglycemia, Vomiting, Abdominal pain, Headache, Acute hypokalemia, MICKEY (acute kidney injury) Forms Stand Alone Forms: [facility] [employer] Prescriptions Prescriptions: No Action lisinopril 40 mg tablet 40 mg PO DAILY Qty: 90 RF: 3 hydrochlorothiazide 12.5 mg tablet 12.5 mg PO DAILY Qty: 30 RF: 2 insulin glargine [Lantus U-100 Insulin] 100 unit/mL Solution 45 unit SUBCUT HS RF: 0 imipramine pamoate 100 mg Capsule 100 mg PO HS RF: 0 gabapentin 300 mg Capsule 300 mg PO HS RF: 0 omeprazole 20 mg Tablet,Delayed Release (Dr/Ec) 20 mg PO DAILY RF: 0 meclizine 25 mg Tablet 25 mg PO TID PRN (Reason: Dizziness) RF: 0 insulin lispro [Humalog KwikPen Insulin] 100 unit/mL Insulin Pen 12 - 14 unit SUBCUT AC RF: 0 tadalafil [Cialis] 20 mg Tablet 20 mg PO DAILY PRN (Reason: Erectile Dysfunction) RF: 0 Humira(CF) Pen 40 mg/0.4 mL Pen Injector Kit See Rx Instructions .ROUTE .COMPLEX RF: 0 carvedilol 25 mg tablet 25 mg PO BID RF: 0 amlodipine 10 mg tablet 10 mg PO DAILY RF: 0 Referrals Referrals: Jenni Sandoval MD [Primary Care Provider] - Discharge Problem: Vomiting Qualifiers: Vomiting type: unspecified Nausea presence: unspecified Qualified Code(s): R11.10 - Vomiting, unspecified Abdominal pain Qualifiers: Abdominal location: unspecified location Qualified Code(s): R10.9 - Unspecified abdominal pain Headache Qualifiers: Headache type: unspecified Headache chronicity pattern: unspecified pattern Intractability: not intractable Qualified Code(s): R51.9 - Headache, unspecified
[2021-10-02 17:29] LABS: iSTAT Creatinine 2.4 mg/dl (0.6-1.3); iSTAT Ionized Calcium 1.22 mmol/l (1.12-1.32); iSTAT Potassium 3.1 mmol/L (3.3-5.0)
[2021-10-02 17:29] LABS: Basophils # (auto) 0.01 K/uL (0-0.2); Basophils % (auto) 0.1 %; Eosinophils # (auto) 0.07 K/uL (0-0.5); Hematocrit (blood only) 44.1 % (42-52); Hemoglobin 16.1 g/dL (14.0-18.0); Immature Granulocytes # (auto) 0.01 K/uL (0.00-0.02); Immature Granulocytes % (auto) 0.1 %; Lymphocytes % (auto) 39.9 %; Mean Corpuscular Hemoglobin 31.2 pg (25-34); Mean Corpuscular Hgb Conc 36.5 g/dL (32-36); Mean Corpuscular Volume 85.5 fL (80-100); Mean Platelet Volume 11.1 fL (7.4-10.4); Monocytes # (auto) 0.94 K/uL (0.11-0.59); Monocytes % (auto) 13.9 %; Neutrophils # (auto) 3.03 K/uL (1.4-6.5); Platelet Count 309 K/uL (130-400); RDW Coefficient of Variation 12.5 % (11.5-14.5); RDW Standard Deviation 38.7 fL (36.4-46.3); Red Blood Count 5.16 M/uL (4.7-6.1); White Blood Count 6.76 K/uL (4.8-10.8)
[2021-10-02] MEDS ORDERED: DEXTROSE 10% 1,000 ML IV SCH (17:30)
[2021-10-02 18:06] LABS: Albumin Globulin Ratio 1.1 (0.9-2); Albumin Level 4.6 gm/dl (3.4-5.0); BUN Creatinine Ratio 8.1 (10-20); Bilirubin,Total 0.7 mg/dl (0.2-1.0); Calcium 10.9 mg/dl (8.5-10.1); Creatinine Clr Calc Pharmacy 31.8 ml/min; Est GFR (African American) 32.2 ml/min; Est GFR (Non-African American) 27.7 ml/min; Globulin 4.1 gm/dl (2.5-4.0); Potassium 3.2 mmol/L (3.5-5.1); Total Protein 8.7 gm/dl (6.0-8.3)
[2021-10-02] MEDS ORDERED: SODIUM CHLORIDE 0.9% 1000ML 1,000 ML IV ONE (18:49)
--- NOTE | 2021-10-02 19:11 | CT Scan Report ---
CT SCAN OF THE BRAIN WITHOUT IV CONTRAST CLINICAL HISTORY: Headache. COMPARISON STUDY: CT of the brain dated 11/04/2018. TECHNIQUE: Unenhanced axial CT scan of the brain is performed from the vertex to the skull base. A d ose lowering technique was utilized adhering to the principles of ALARA. CT DOSE: 1724.17 mGy.cm FINDINGS: Brain parenchyma: There is mild age advanced involutional change noting mild microangiopathic disease . There is no hemorrhage, mass effect, or evidence of acute territorial ischemia by CT criteria. Agosto -white matter differentiation is preserved. 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 Small chronic lacunar infarcts are also seen in the left basal ganglia. No extra-axial fluid collection is seen. Ventricles, sulci, cisterns: Prominent secondary to involutional change. Intracranial vasculature: There is atherosclerotic calcification of the cavernous carotid and vertebr al arteries. Calvarium: Unremarkable. Sinuses and mastoids: The visualized paranasal sinuses are clear. The mastoid air cells are well pneu matized. Orbits: The bony orbits are grossly intact. IMPRESSION: There is no hemorrhage, mass effect, or evidence of acute territorial ischemia by CT ngozi franco. ACT 112: Negative or not required by law. Electronically signed by: Malachi Low M.D. 10/02/2021 7:10 PM
--- NOTE | 2021-10-02 19:23 | CT Scan Report ---
CT SCAN OF THE ABDOMEN AND PELVIS WITHOUT IV CONTRAST CLINICAL HISTORY: Generalized abdominal pain. Vomiting. COMPARISON STUDY: No priors. TECHNIQUE: CT scan of the abdomen and pelvis is performed from the lung bases to the proximal femora. Images are reviewed in the axial, sagittal, and coronal planes. IV contrast was not administered for this examination. Note that the examination was performed in suboptimal fashion without oral and IV contrast. A dose lowering technique was utilized adhering to the principles of ALARA. FINDINGS: Lung bases: The heart is enlarged and and without pericardial effusion. Pacemaker leads are noted. Pa tchy groundglass consolidation is present at both lung bases. No pleural effusion is identified. Ther e is a small to moderate hiatal hernia. Liver: The unenhanced liver is normal in size, contour, and attenuation. There is no intrahepatic kaylee iary ductal dilatation. Gallbladder: Unremarkable. Spleen: Normal in size and attenuation. Pancreas: Unremarkable. Adrenal glands: Unremarkable. Kidneys: The unenhanced kidneys are normal in size and without hydronephrosis. There are at least 5 t iny nonobstructing calculi in the right kidney and at least 4 tiny nonobstructing calculi in the left kidney which measure up to 3 mm. No ureteral stone is seen. An 11 mm cyst is noted in the left kidne y. Abdominal vasculature: The abdominal aorta is normal in course and caliber noting mild to moderate at herosclerotic calcification. Bowel: There is moderate colonic fecal retention. No bowel obstruction is seen. The appendix is well -visualized and normal. Peritoneum: There is no intraperitoneal free air or abdominal ascites. There is a fat-containing umbi lical hernia. Foci of induration within the ventral abdominal wall are likely to subcutaneous injecti ons. Lymphadenopathy: None. Pelvic viscera: The prostate gland is markedly enlarged and heterogeneous noting median lobe hypertro phy. The bladder wall is thickened and trabeculated indicating chronic outlet obstruction. There are small bilateral fat-containing inguinal hernias. Skeletal structures: No lytic or blastic lesions are seen. IMPRESSION: 1. Patchy groundglass consolidation is seen at both lung bases. The appearance is typical for an infe ctious/inflammatory pneumonitis and clinical correlation will be required. 2. No acute infectious or inflammatory findings are identified in the abdomen or pelvis. 3. Bilateral nephrolithiasis. 4. Cardiomegaly and cardiac pacemaker. 5. Moderate constipation. 6. Prostatomegaly with evidence of chronic bladder outlet obstruction. 7. Additional findings as above. ACT 112: Negative or not required by law. Electronically signed by: Malachi Low M.D. 10/02/2021 7:21 PM
[2021-10-02] MEDS ORDERED: AZITHROMYCIN 500 MG in DEXTROSE 5% 250 ML IV ONE (20:00)
[2021-10-02] MEDS ORDERED: cefTRIAXone SODIUM 1,000 MG/50 ML BAG IV STA (20:00)
--- NOTE | 2021-10-02 20:19 | XRay Report ---
SINGLE VIEW CHEST CLINICAL HISTORY: Cough. FINDINGS: An AP, portable, upright chest radiograph is compared to study dated 04/25/2017. Correlatio n is made with abdominal CT performed the same day 10/02/2021. A 2-lead cardiac AICD is unchanged in po sition and partially obscures the left upper chest. The heart is mildly enlarged. The pulmonary vascu lature is noncongested. Mild opacities are seen at the lung bases. There is bibasilar scarring/atelec tasis. No large pleural effusion or Pneumothorax is seen. The skeletal structures are osteopenic. The bony thorax is grossly intact. IMPRESSION: 1. There are mild bibasilar airspace opacities. This corresponds to an infectious/inflammatory pneumo nitis when correlated with today's CT scan. 2. Cardiomegaly and AICD without radiographic evidence of congestive failure. ACT 112: Negative or not required by law. Electronically signed by: Malachi Low M.D. 10/02/2021 8:18 PM
[2021-10-02] MEDS ORDERED: MoRPHine SULFATE 4 MG/ML 1 ML CARP\\VIAL IV STA (20:28)
--- NOTE | 2021-10-02 20:58 | History & Physical Report ---
Date of Service October 02, 2021 Assessment & Plan (1) Hypoglycemia associated with type 2 diabetes mellitus: Plan: Harshad Vuong is a 56y/o with past medical history significant for type 2 diabetes, nonischemic cardiomyopathy, hyperlipidemia, coronary artery disease, h ypertension, diabetic peripheral neuropathy; who presented to the ED earlier in the day following development of nausea and vomiting over the course of 1 hour. Hypoglycemia: -likely secondary to increased insulin dose prior to admission -glucose 22 on presentation to ED with recheck of 26 -symptomatically improved following administration of IV dextrose -hold home humalog regimen -continue Lantus 45U tomorrow -uncertain the total amount of insulin that he requires at baseline so will have SSI to help determine extent of need -BSGs ACHS -A1c in AM Acute renal failure: -baseline Cr 1.1 -Cr on admission of 2.48 -likely in the setting of dehydration in addition to anti-hypertensive medications/diuretics -in ED received 3L of IVF rehydration -continue to monitor Hypokalemia: -K of 3.2 on admission -complicated by the presence of hypoglycemia in the setting of increased insulin use, and home diuretics -received 40meq of KCl -continue to monitor daily Bibasilar atelectasis: -CT in ED demonstrating patchy ground-glass consolidations at both lung bases -potentially secondary to aspiration pneumonitis given n/v prior to arrival vs viral pneumonia -no WBC elevation -procalcitonin pending -COVID-19 pending -in ED received Azithromycin and Rocephin -consider continuation of antibiotics if development of subsequent symptoms Nonischemic cardiomyopathy: -s/p ICD -currently asymptomatic but with signs of cardiomegaly on CT -monitor IVFs closely in the setting of renal failure with unknown cardiac function -hold HCTZ, Lisinopril in the setting of renal failure -continue Coreg, amlodipine Hypertension: -SBP 223 in ED -hold nephrotoxic medications -continue amlodipine, coreg Code status: Full code Diet: Carb consistent DVT PPX: SQ Heparin (2) Hypokalemia: (3) Acute kidney failure: (4) Cardiomyopathy, nonischemic: (5) Cardiac defibrillator in place: (6) Hypertension: (7) Mild bibasilar atelectasis: History of Present Illness Primary Care Provider: Jenni Sandoval MD Harshad Vuong is a 56y/o with past medical history significant for type 2 diabetes, nonischemic cardiomyopathy, hyperlipidemia, coronary artery disease, hypertension, diabetic peripheral neuropathy; who presented to the ED earlier in the day following development of nausea and vomiting over the course of 1 hour. Notes that he had been feeling unwell throughout the day as his blood sugars have been off. Recently did lose his glucometer and had not secured another 1 had been taking his insulin still regularly but was having to estimate how much insulin he was needing. States that he typically takes 45 units of Lantus nightly but occasionally will split this to either have some during the morning and then some at night in order to limit his total amount of insulin if he feels like he does not need it. During the day he takes anywhere between 10 to 15 units 3 times a day with meals. Earlier today following his blood sugars were in the 500s and so he took 45 units of Humalog and then later in the day felt like his blood sugars were still high and so he took an additional 30 units. Thinks his blood sugars were around 240 at the time when he took the additional 30 units of rapid acting insulin. Then was eating at sheets when he noticed that he was persistently nauseous and no matter what he ate he felt like he could not get his blood sugars up. In the ED had initial blood sugars of 22 with correction after administration of dextrose. Continuing to have feeling of nausea and chills. States he was not having these prior to earlier today. Allergies Allergy/AdvReac Type Severity Reaction Status Date / Time peanut Allergy Severe Anaphylaxis Verified 10/02/21 17:24 prednisone Allergy Severe SEVERE GI Verified 10/02/21 17:24 UPSET acetaminophen AdvReac Intermediate upset Verified 10/02/21 17:24 stomach Home Medications Medication Instructions Recorded Confirmed Type gabapentin 300 mg capsule 300 mg PO HS 10/22/18 10/02/21 History imipramine pamoate 100 mg capsule 100 mg PO HS 10/22/18 10/02/21 History insulin glargine 100 unit/mL 45 unit SUBCUT HS 10/22/18 10/02/21 History subcutaneous solution (Lantus U-100 Insulin) omeprazole 20 mg tablet,delayed 20 mg PO DAILY 10/22/18 10/02/21 History release hydrochlorothiazide 12.5 mg tablet 12.5 mg PO DAILY #30 tab 10/27/18 10/02/21 Rx lisinopril 40 mg tablet 40 mg PO DAILY #90 tab 02/17/19 10/02/21 Rx adalimumab 40 mg/0.4 mL See Rx Instructions .ROUTE .COMPLEX 08/22/21 10/02/21 History subcutaneous pen kit (Humira(CF) Pen) amlodipine 10 mg tablet 10 mg PO DAILY 08/22/21 10/02/21 History carvedilol 25 mg tablet 25 mg PO BID 08/22/21 10/02/21 History insulin lispro 100 unit/mL 12 - 14 unit SUBCUT AC 08/22/21 10/02/21 History subcutaneous pen (Humalog KwikPen (U-100) Insulin) meclizine 25 mg tablet 25 mg PO TID PRN 08/22/21 10/02/21 History tadalafil 20 mg tablet (Cialis) 20 mg PO DAILY PRN 08/22/21 10/02/21 History Past Med/Surg History Medical History Acid reflux disease Cardiac defibrillator in place Cardiomyopathy, nonischemic Cerumen impaction Depression Diabetes mellitus Diabetes mellitus type 2, uncontrolled Diabetic peripheral neuropathy Hearing decreased Hyperlipidemia Hypertension His blood pressure is somewhat labile- I am not certain if he is taking all of meds as directed. I will add HCTZ 12.5 to hopefully stabilze things a little and provide some reassurance Irregular heartbeat Pelvic pain in male Proteinuria Psoriasis Psoriatic arthropathy Family History Father Diabetes Cardiac disorder Hypertension Mother Cancer Social History Smoking Status: Never smoker Preferred Language: [employer] Work[employer] Required: No Beliefs That Will Affect Care: None Assistive Devices: Glasses Review of Systems Review of Systems: All systems reviewed & are unremarkable except as noted in HPI & below Physical Exam Constitutional: WD/WN, vitals as above Eyes: PERRL, conjunctivae normal, anicteric sclerae Respiratory: normal respiratory effort, lungs clear to auscultation Auscultation: no crackles, no rales, no rhonchi and no wheezes Cardiovascular: Rate/Rhythm: regular rate and regular rhythm Heart Sounds: no gallop, no murmur and no cardiac rub Vessels: normal peripheral pulses; no JVD Extremities: no edema Gastrointestinal (Abdomen): Inspection/Auscultation: normal bowel sounds; abdomen not distended Percussion/Palpation: abdomen soft; abdomen nontender and no guarding Musculoskeletal: no cyanosis or clubbing, extremities motor strength 5/5 Skin: no rashes, warm and dry Neurologic: PERRL, EOMI, accommodation nl, no face palsy, no dysarthria CN's II-XI intact bilaterally and moves all extremities Psychiatric: Orientation: alert and oriented x 3 Results & Data Results & Data ([facility]) Vital Signs (Past 12 Hours) Vital Signs Temp Pulse Pulse Resp BP BP Pulse Ox 10/02/21 20:16 77 24 223/150 H 10/02/21 20:10 81 23 10/02/21 20:00 62 21 10/02/21 19:50 66 18 100 10/02/21 19:45 61 19 173/88 H 89 L 10/02/21 19:40 64 20 97 10/02/21 19:30 59 L 22 98 10/02/21 19:20 60 23 97 10/02/21 19:15 60 19 190/88 H 96 10/02/21 19:14 58 L 18 195/95 H 97 10/02/21 19:12 25 H 10/02/21 18:54 36.5 C 10/02/21 18:50 56 L 13 10/02/21 18:45 54 L 8 L 134/66 99 10/02/21 18:40 54 L 12 99 10/02/21 18:36 57 L 16 128/63 97 10/02/21 18:30 52 L 4 L 128/63 10/02/21 18:20 53 L 14 10/02/21 18:15 54 L 18 121/61 93 10/02/21 18:10 54 L 16 94 10/02/21 18:00 54 L 14 128/72 97 10/02/21 17:50 62 21 99 10/02/21 17:45 58 L 19 157/89 H 96 10/02/21 17:40 58 L 19 95 10/02/21 17:30 53 L 17 126/59 L 92 10/02/21 17:29 56 L 18 93 10/02/21 17:20 54 L 21 89 L 10/02/21 17:16 52 L 22 187/87 H 95 10/02/21 17:10 58 L 16 95 10/02/21 17:05 56 L 20 161/83 H 95 10/02/21 17:00 54 L 23 91 10/02/21 16:50 64 20 96 10/02/21 16:35 66 21 150/87 H 95 Laboratory Results 10/02/21 10/02/21 10/02/21 Range/Units 20:38 20:14 18:32 WBC (4.8-10.8) K/uL RBC (4.7-6.1) M/uL Hgb (14.0-18.0) g/dL POC Hgb (14.0-18.0) g/dl Hct (42-52) % POC Hct (42-52) % MCV (80-100) fL MCH (25-34) pg MCHC (32-36) g/dL RDW Std Deviation (36.4-46.3) fL RDW Coeff of Saulo (11.5-14.5) % Plt Count (130-400) K/uL MPV (7.4-10.4) fL Immature Gran % (Auto) % Neut % (Auto) % Lymph % (Auto) % Karnes % (Auto) % Eos % (Auto) % Baso % (Auto) % Neut # (Auto) (1.4-6.5) K/uL Lymph # (Auto) (1.2-3.4) K/uL Karnes # (Auto) (0.11-0.59) K/uL Eos # (Auto) (0-0.5) K/uL Baso # (Auto) (0-0.2) K/uL Immature Gran # (Auto) (0.00-0.02) K/uL POC Sodium (135-144) mmol/L Sodium (136-145) mmol/L POC Potassium (3.3-5.0) mmol/L Potassium (3.5-5.1) mmol/L POC Chloride (101-112) mmol/L Chloride (98-107) mmol/L Carbon Dioxide (21-32) mmol/L POC Total CO2 (24-31) mmol/L Anion Gap (3-11) POC Anion Gap (16-25) mmol/L POC BUN (7-18) mg/dl BUN (6-23) mg/dl Creatinine (0.6-1.4) mg/dl POC Creatinine (0.6-1.3) mg/dl Est Cr Clr Drug Dosing ml/min Est GFR ( Amer) ml/min Est GFR (Non-Af Amer) ml/min BUN/Creatinine Ratio (10-20) Glucose (70-99(Fasting)) mg/dl POC Glucose 76 67 L* (70-99) mg/dl POC Glucose (other) (70-99) mg/dl Calcium (8.5-10.1) mg/dl POC Ioniz Calcium Kiran (1.12-1.32) mmol/l Total Bilirubin (0.2-1.0) mg/dl AST (13-39) U/L ALT (7-52) U/L Alkaline Phosphatase (34-104) U/L Total Protein (6.0-8.3) gm/dl Albumin (3.4-5.0) gm/dl Globulin (2.5-4.0) gm/dl Albumin/Globulin Ratio (0.9-2) Lipase (11-82) U/L SARS-CoV-2, RNA, NAAT Pending 10/02/21 10/02/21 10/02/21 Range/Units 18:31 17:40 17:20 WBC (4.8-10.8) K/uL RBC (4.7-6.1) M/uL Hgb (14.0-18.0) g/dL POC Hgb (14.0-18.0) g/dl Hct (42-52) % POC Hct (42-52) % MCV (80-100) fL MCH (25-34) pg MCHC (32-36) g/dL RDW Std Deviation (36.4-46.3) fL RDW Coeff of Saulo (11.5-14.5) % Plt Count (130-400) K/uL MPV (7.4-10.4) fL Immature Gran % (Auto) % Neut % (Auto) % Lymph % (Auto) % Karnes % (Auto) % Eos % (Auto) % Baso % (Auto) % Neut # (Auto) (1.4-6.5) K/uL Lymph # (Auto) (1.2-3.4) K/uL Karnes # (Auto) (0.11-0.59) K/uL Eos # (Auto) (0-0.5) K/uL Baso # (Auto) (0-0.2) K/uL Immature Gran # (Auto) (0.00-0.02) K/uL POC Sodium (135-144) mmol/L Sodium (136-145) mmol/L POC Potassium (3.3-5.0) mmol/L Potassium (3.5-5.1) mmol/L POC Chloride (101-112) mmol/L Chloride (98-107) mmol/L Carbon Dioxide (21-32) mmol/L POC Total CO2 (24-31) mmol/L Anion Gap (3-11) POC Anion Gap (16-25) mmol/L POC BUN (7-18) mg/dl BUN (6-23) mg/dl Creatinine (0.6-1.4) mg/dl POC Creatinine (0.6-1.3) mg/dl Est Cr Clr Drug Dosing ml/min Est GFR ( Amer) ml/min Est GFR (Non-Af Amer) ml/min BUN/Creatinine Ratio (10-20) Glucose (70-99(Fasting)) mg/dl POC Glucose 78 91 62 L* (70-99) mg/dl POC Glucose (other) (70-99) mg/dl Calcium (8.5-10.1) mg/dl POC Ioniz Calcium Kiran (1.12-1.32) mmol/l Total Bilirubin (0.2-1.0) mg/dl AST (13-39) U/L ALT (7-52) U/L Alkaline Phosphatase (34-104) U/L Total Protein (6.0-8.3) gm/dl Albumin (3.4-5.0) gm/dl Globulin (2.5-4.0) gm/dl Albumin/Globulin Ratio (0.9-2) Lipase (11-82) U/L SARS-CoV-2, RNA, NAAT 10/02/21 10/02/21 10/02/21 Range/Units 17:16 17:03 17:03 WBC 6.76 (4.8-10.8) K/uL RBC 5.16 (4.7-6.1) M/uL Hgb 16.1 (14.0-18.0) g/dL POC Hgb 16.0 (14.0-18.0) g/dl Hct 44.1 (42-52) % POC Hct 47 (42-52) % MCV 85.5 (80-100) fL MCH 31.2 (25-34) pg MCHC 36.5 H (32-36) g/dL RDW Std Deviation 38.7 (36.4-46.3) fL RDW Coeff of Saulo 12.5 (11.5-14.5) % Plt Count 309 (130-400) K/uL MPV 11.1 H (7.4-10.4) fL Immature Gran % (Auto) 0.1 % Neut % (Auto) 45.0 % Lymph % (Auto) 39.9 % Karnes % (Auto) 13.9 % Eos % (Auto) 1.0 % Baso % (Auto) 0.1 % Neut # (Auto) 3.03 (1.4-6.5) K/uL Lymph # (Auto) 2.70 (1.2-3.4) K/uL Karnes # (Auto) 0.94 H (0.11-0.59) K/uL Eos # (Auto) 0.07 (0-0.5) K/uL Baso # (Auto) 0.01 (0-0.2) K/uL Immature Gran # (Auto) 0.01 (0.00-0.02) K/uL POC Sodium 137 (135-144) mmol/L Sodium 134 L (136-145) mmol/L POC Potassium 3.1 L (3.3-5.0) mmol/L Potassium 3.2 L (3.5-5.1) mmol/L POC Chloride 98 L (101-112) mmol/L Chloride 95 L (98-107) mmol/L Carbon Dioxide 26 (21-32) mmol/L POC Total CO2 27 (24-31) mmol/L Anion Gap 13 H (3-11) POC Anion Gap 15.0 L (16-25) mmol/L POC BUN 21 H (7-18) mg/dl BUN 20 (6-23) mg/dl Creatinine 2.48 H (0.6-1.4) mg/dl POC Creatinine 2.4 H (0.6-1.3) mg/dl Est Cr Clr Drug Dosing 31.8 ml/min Est GFR ( Amer) 32.2 ml/min Est GFR (Non-Af Amer) 27.7 ml/min BUN/Creatinine Ratio 8.1 L (10-20) Glucose 22 L* (70-99(Fasting)) mg/dl POC Glucose (70-99) mg/dl POC Glucose (other) 26 L* (70-99) mg/dl Calcium 10.9 H (8.5-10.1) mg/dl POC Ioniz Calcium Kiran 1.22 (1.12-1.32) mmol/l Total Bilirubin 0.7 (0.2-1.0) mg/dl AST 23 (13-39) U/L ALT 22 (7-52) U/L Alkaline Phosphatase 122 H (34-104) U/L Total Protein 8.7 H (6.0-8.3) gm/dl Albumin 4.6 (3.4-5.0) gm/dl Globulin 4.1 H (2.5-4.0) gm/dl Albumin/Globulin Ratio 1.1 (0.9-2) Lipase 34 (11-82) U/L SARS-CoV-2, RNA, NAAT 10/02/21 Range/Units 16:54 WBC (4.8-10.8) K/uL RBC (4.7-6.1) M/uL Hgb (14.0-18.0) g/dL POC Hgb (14.0-18.0) g/dl Hct (42-52) % POC Hct (42-52) % MCV (80-100) fL MCH (25-34) pg MCHC (32-36) g/dL RDW Std Deviation (36.4-46.3) fL RDW Coeff of Saulo (11.5-14.5) % Plt Count (130-400) K/uL MPV (7.4-10.4) fL Immature Gran % (Auto) % Neut % (Auto) % Lymph % (Auto) % Karnes % (Auto) % Eos % (Auto) % Baso % (Auto) % Neut # (Auto) (1.4-6.5) K/uL Lymph # (Auto) (1.2-3.4) K/uL Karnes # (Auto) (0.11-0.59) K/uL Eos # (Auto) (0-0.5) K/uL Baso # (Auto) (0-0.2) K/uL Immature Gran # (Auto) (0.00-0.02) K/uL POC Sodium (135-144) mmol/L Sodium (136-145) mmol/L POC Potassium (3.3-5.0) mmol/L Potassium (3.5-5.1) mmol/L POC Chloride (101-112) mmol/L Chloride (98-107) mmol/L Carbon Dioxide (21-32) mmol/L POC Total CO2 (24-31) mmol/L Anion Gap (3-11) POC Anion Gap (16-25) mmol/L POC BUN (7-18) mg/dl BUN (6-23) mg/dl Creatinine (0.6-1.4) mg/dl POC Creatinine (0.6-1.3) mg/dl Est Cr Clr Drug Dosing ml/min Est GFR ( Amer) ml/min Est GFR (Non-Af Amer) ml/min BUN/Creatinine Ratio (10-20) Glucose (70-99(Fasting)) mg/dl POC Glucose 63 L* (70-99) mg/dl POC Glucose (other) (70-99) mg/dl Calcium (8.5-10.1) mg/dl POC Ioniz Calcium Kiran (1.12-1.32) mmol/l Total Bilirubin (0.2-1.0) mg/dl AST (13-39) U/L ALT (7-52) U/L Alkaline Phosphatase (34-104) U/L Total Protein (6.0-8.3) gm/dl Albumin (3.4-5.0) gm/dl Globulin (2.5-4.0) gm/dl Albumin/Globulin Ratio (0.9-2) Lipase (11-82) U/L SARS-CoV-2, RNA, NAAT Diagnostic Findings Impressions Head CT 10/02/21 17:07 CT SCAN OF THE BRAIN WITHOUT IV CONTRAST CLINICAL HISTORY: Headache. COMPARISON STUDY: CT of the brain dated 11/04/2018. TECHNIQUE: Unenhanced axial CT scan of the brain is performed from the vertex to the skull base. A dose lowering technique was utilized adhering to the principles of ALARA. CT DOSE: 1724.17 mGy.cm FINDINGS: Brain parenchyma: There is mild age advanced involutional change noting mild microangiopathic disease. There is no hemorrhage, mass effect, or evidence of acute territorial ischemia by CT criteria. Agosto-white matter differentiation is preserved. 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 Small chronic lacunar infarcts are also seen in the left basal ganglia. No extra-axial fluid collection is seen. Ventricles, sulci, cisterns: Prominent secondary to involutional change. Intracranial vasculature: There is atherosclerotic calcification of the cavernous carotid and vertebral arteries. Calvarium: Unremarkable. Sinuses and mastoids: The visualized paranasal sinuses are clear. The mastoid air cells are well pneumatized. Orbits: The bony orbits are grossly intact. IMPRESSION: There is no hemorrhage, mass effect, or evidence of acute territorial ischemia by CT criteria. ACT 112: Negative or not required by law. Electronically signed by: Malachi Low M.D. 10/02/2021 7:10 PM Abdomen/Pelvis CT 10/02/21 18:24 CT SCAN OF THE ABDOMEN AND PELVIS WITHOUT IV CONTRAST CLINICAL HISTORY: Generalized abdominal pain. Vomiting. COMPARISON STUDY: No priors. TECHNIQUE: CT scan of the abdomen and pelvis is performed from the lung bases to the proximal femora. Images are reviewed in the axial, sagittal, and coronal planes. IV contrast was not administered for this examination. Note that the examination was performed in suboptimal fashion without oral and IV contrast. A dose lowering technique was utilized adhering to the principles of ALARA. FINDINGS: Lung bases: The heart is enlarged and and without pericardial effusion. Pacemaker leads are noted. Patchy groundglass consolidation is present at both lung bases. No pleural effusion is identified. There is a small to moderate hiatal hernia. Liver: The unenhanced liver is normal in size, contour, and attenuation. There is no intrahepatic biliary ductal dilatation. Gallbladder: Unremarkable. Spleen: Normal in size and attenuation. Pancreas: Unremarkable. Adrenal glands: Unremarkable. Kidneys: The unenhanced kidneys are normal in size and without hydronephrosis. There are at least 5 tiny nonobstructing calculi in the right kidney and at least 4 tiny nonobstructing calculi in the left kidney which measure up to 3 mm. No ureteral stone is seen. An 11 mm cyst is noted in the left kidney. Abdominal vasculature: The abdominal aorta is normal in course and caliber noting mild to moderate atherosclerotic calcification. Bowel: There is moderate colonic fecal retention. No bowel obstruction is seen. The appendix is well-visualized and normal. Peritoneum: There is no intraperitoneal free air or abdominal ascites. There is a fat-containing umbilical hernia. Foci of induration within the ventral abdominal wall are likely to subcutaneous injections. Lymphadenopathy: None. Pelvic viscera: The prostate gland is markedly enlarged and heterogeneous noting median lobe hypertrophy. The bladder wall is thickened and trabeculated indicating chronic outlet obstruction. There are small bilateral fat-containing inguinal hernias. Skeletal structures: No lytic or blastic lesions are seen. IMPRESSION: 1. Patchy groundglass consolidation is seen at both lung bases. The appearance is typical for an infectious/inflammatory pneumonitis and clinical correlation will be required. 2. No acute infectious or inflammatory findings are identified in the abdomen or pelvis. 3. Bilateral nephrolithiasis. 4. Cardiomegaly and cardiac pacemaker. 5. Moderate constipation. 6. Prostatomegaly with evidence of chronic bladder outlet obstruction. 7. Additional findings as above. ACT 112: Negative or not required by law. Electronically signed by: Malachi Low M.D. 10/02/2021 7:21 PM Chest X-Ray 10/02/21 20:00 SINGLE VIEW CHEST CLINICAL HISTORY: Cough. FINDINGS: An AP, portable, upright chest radiograph is compared to study dated 04/25/2017. Correlation is made with abdominal CT performed the same day 10/02/2021. A 2-lead cardiac AICD is unchanged in position and partially obscures the left upper chest. The heart is mildly enlarged. The pulmonary vasculature is noncongested. Mild opacities are seen at the lung bases. There is bibasilar scarring/atelectasis. No large pleural effusion or Pneumothorax is seen. The skeletal structures are osteopenic. The bony thorax is grossly intact. IMPRESSION: 1. There are mild bibasilar airspace opacities. This corresponds to an infectio us/inflammatory pneumonitis when correlated with today's CT scan. 2. Cardiomegaly and AICD without radiographic evidence of congestive failure. ACT 112: Negative or not required by law. Electronically signed by: Malachi Low M.D. 10/02/2021 8:18 PM Medications Administered Home Medication List Medication Instructions Recorded gabapentin 300 mg capsule 300 mg PO HS 10/22/18 imipramine pamoate 100 mg capsule 100 mg PO HS 10/22/18 insulin glargine 100 unit/mL 45 unit SUBCUT HS 10/22/18 subcutaneous solution (Lantus U-100 Insulin) omeprazole 20 mg tablet,delayed 20 mg PO DAILY 10/22/18 release hydrochlorothiazide 12.5 mg tablet 12.5 mg PO DAILY #30 tab 10/27/18 lisinopril 40 mg tablet 40 mg PO DAILY #90 tab 02/17/19 adalimumab 40 mg/0.4 mL See Rx Instructions .ROUTE .COMPLEX 08/22/21 subcutaneous pen kit (Humira(CF) Pen) amlodipine 10 mg tablet 10 mg PO DAILY 08/22/21 carvedilol 25 mg tablet 25 mg PO BID 08/22/21 insulin lispro 100 unit/mL 12 - 14 unit SUBCUT AC 08/22/21 subcutaneous pen (Humalog KwikPen (U-100) Insulin) meclizine 25 mg tablet 25 mg PO TID PRN 08/22/21 tadalafil 20 mg tablet (Cialis) 20 mg PO DAILY PRN 08/22/21 Supervising Physician Co-Signing Physician Notes Attending addendum: I have physically seen this patient, have supervised the medical residents activities, and agree with the H&P unless as otherwise noted. Assessment and Plan: Hypoglycemia associated with diabetes mellitus type 2- Patient noted to be administering insulin without being able to check blood sugars Make sure that patient has a glucometer prior to being discharged from the hospital Improved after given IV dextrose No coverage this evening Should be able to resume normal Lantus dosing tomorrow Check hemoglobin A1c Acute kidney injury- Creatinine 2.48 on admission, with base 1.16 Repeat laboratories in a.m. after IV fluid rehydration. Patient is status post 3 L IV fluids in ED Remaining orders and notations as noted Resident Activity Tracking Resident Involvement: Resident Care Provided Care Provided: Adult Hospital Medicine
[2021-10-02] MEDS ORDERED: POTASSIUM CHLORIDE 10 MEQ TABCR PO STA (21:48)
[2021-10-02] MEDS ORDERED: POTASSIUM CHLORIDE / WTR 10 MEQ/100 ML PLCT IV SCH (22:45)
[2021-10-03] MEDS ORDERED: DEXTROSE 50% 50 ML SYRINGE IV PRN (00:34)
[2021-10-03] MEDS ORDERED: POLYETHYLENE (MIRALAX) 17 GM PACK PO PRN (00:34)
[2021-10-03] MEDS ORDERED: GLUCOSE 40% GEL 15 GM TUBE PO PRN (00:34)
[2021-10-03] MEDS ORDERED: MAGNESIUM HYDROXIDE SUSP 30 ML UDC PO PRN (00:34)
[2021-10-03] MEDS ORDERED: NITROGLYCERIN SL 0.4 MG/TAB TAB SL PRN (00:34)
[2021-10-03] MEDS ORDERED: ACETAMINOPHEN 325 MG TAB PO PRN (00:34)
[2021-10-03] MEDS ORDERED: ALUMINUM/MAGNESIUM SUSP 30 ML UDC PO PRN (00:34)
[2021-10-03] MEDS ORDERED: GLUCAGON FOR INJ 1 MG VIAL SQ PRN (00:34)
[2021-10-03] MEDS ORDERED: MoRPHine SULFATE 2 MG/ML CARP IV PRN (00:34)
[2021-10-03] MEDS ORDERED: CARBOHYDRATES FOR HYPOGLYCEMIA PO PRN (00:34)
[2021-10-03] MEDS ORDERED: GLUCOSE 10 TABS/TUBE PO PRN (00:34)
[2021-10-03] MEDS: ONDANSETRON INJ 2 MG/ML 2 ML VIAL IV PRN (00:54)
[2021-10-03] MEDS ORDERED: PROMETHAZINE HCL 25 MG TAB PO ONE (01:46)
[2021-10-03] MEDS ORDERED: PROCHLORPERAZINE 5 MG in SYRINGE 4 ML IV ONE (02:15)
--- NOTE | 2021-10-03 02:40 | Billing Data ---
Date of Service October 03, 2021 Coding Level of Care Code 64156 Initial Inpt Care Lvl 3
[2021-10-03] MEDS: INSULIN ASPART PER UNIT SC SCH ×9 (02:55→22:11)
[2021-10-03] MEDS: GABAPENTIN 300 MG CAP PO SCH ×2 (02:58→20:57)
[2021-10-03] MEDS: carvediloL 25 MG TAB PO SCH ×3 (02:58→20:56)
[2021-10-03 06:47] LABS: Basophils # (auto) 0.01 K/uL (0-0.2); Eosinophils # (auto) 0.01 K/uL (0-0.5); Hematocrit (blood only) 37.6 % (42-52); Hemoglobin 13.4 g/dL (14.0-18.0); Immature Granulocytes # (auto) 0.12 K/uL (0.00-0.02); Immature Granulocytes % (auto) 0.5 %; Lymphocytes # (auto) 2.48 K/uL (1.2-3.4); Lymphocytes % (auto) 10.2 %; Mean Corpuscular Hemoglobin 31.1 pg (25-34); Mean Corpuscular Hgb Conc 35.6 g/dL (32-36); Mean Corpuscular Volume 87.2 fL (80-100); Mean Platelet Volume 11.2 fL (7.4-10.4); Monocytes # (auto) 2.03 K/uL (0.11-0.59); Monocytes % (auto) 8.4 %; Neutrophils # (auto) 19.63 K/uL (1.4-6.5); Neutrophils % (auto) 80.9 %; Platelet Count 239 K/uL (130-400); RDW Coefficient of Variation 12.5 % (11.5-14.5); RDW Standard Deviation 40.3 fL (36.4-46.3); Red Blood Count 4.31 M/uL (4.7-6.1); White Blood Count 24.28 K/uL (4.8-10.8)
[2021-10-03 07:02] LABS: BUN Creatinine Ratio 11.4 (10-20); Calcium 8.8 mg/dl (8.5-10.1); Creatinine Clr Calc Pharmacy 45.1 ml/min; Est GFR (Non-African American) 42.3 ml/min; Magnesium 1.7 mg/dl (1.7-2.4); Phosphorus 3.7 mg/dl (2.5-4.9)
[2021-10-03 07:41] LABS: Estimated Average Glucose 272 mg/dl; Hemoglobin A1C 11.1 % (4.5-5.6)
[2021-10-03] MEDS: amLODIPine BESYLATE 5 MG TAB PO SCH (09:04)
[2021-10-03] MEDS: HEPARIN SOD 5,000 UNIT/0.5 ML VIAL SQ SCH ×2 (09:05→20:57)
[2021-10-03] MEDS ORDERED: INSULIN ASPART PER UNIT ONE (09:27)
[2021-10-03] MEDS: BACITRACIN OINT 15 GM TUBE EXT SCH ×2 (13:46→20:58)
[2021-10-03] MEDS: SODIUM CHLORIDE 0.9% 1000ML 1,000 ML IV SCH ×2 (13:46→22:14)
[2021-10-03] MEDS: traMADol HCL 50 MG TABLET PO PRN (15:23)
[2021-10-03 16:20] LABS: Appearance Urine Clear (Clear); Bacteria Urine Automated Negative (Negative); Bilirubin Urine Negative (Negative); Blood Urine Negative (Negative); Color Urine Yellow; Glucose Urine UA 2+ (Negative); Ketones Urine Trace (Negative); Leukocyte Esterase Urine Negative (Negative); Nitrite Urine Negative (Negative); Protein Urine 1+ (Negative); RBC Urine Automated 0-4 /hpf (0-4); Urobilinogen Urine Negative (Negative)
[2021-10-03] MEDS: AMOXICILLIN/CLAVULANATE 875 MG TAB PO SCH (16:59)
--- NOTE | 2021-10-03 19:06 | Hospitalist Progress Note ---
Date of Service October 03, 2021 Assessment & Plan (1) Nausea and vomiting: Plan: Appears to have resolved today. ?due to moderate constipation seen on CT vs. hypoglycemia (unclear if cause or result). No concerning acute pathology on CT other than groundglass patchy consolidation seen at both lung bases. (2) Hypoglycemia associated with type 2 diabetes mellitus: Plan: -likely secondary to increased insulin dose prior to admission +/- N&V -glucose 22 on presentation to ED with recheck of 26 -symptomatically improved following administration of IV dextrose on admission -continue Lantus 45U HS (starting tonight) to see if he can tolerate his normal does now eating and drinking - did not receive any long acting yesterday hence increased glucose values in 200s today -Novolog tighten control today Goal BSG Range: Low 100mg/dL, High 140mg/dL Correction Factor: 15mg/dL/unit Carbohydrate ratio = 5 g/unit BSGs ACHS if eating, q6h if npo -BSGs ACHS -HbA1C 11.1 - consult clinical document improvement educator (3) Acute kidney failure: Plan: -baseline Cr 1.1 -Cr on admission of 2.48 -> 1.75 -likely in the setting of dehydration in addition to anti-hypertensive medications/diuretics -in ED received 3L of IVF rehydration without heart failure - Continue NSS @125 ml/hr overnight - may need careful reintroduction of diuretics given cardiomyopathy (4) Aspiration pneumonia: Plan: Suspect mostly aspiration at this stage as he was feeling well the day prior to admission therefore the consolidation likely happened as a result of N&V and his sudden jump in WBC reflects this. But given fever last night, significantly elevated WBC and diabetes will cover for pneumonia with Augmentin (5) Hypokalemia: Plan: Resolved with supplementation - 4.0 this morning. Suspect secondary to vomiting in setting of HCTZ. (6) Cardiomyopathy, nonischemic: Plan: Continue carvedilol 25mg PO BID. Will defer addition of Entresto to his outpatient physicians - patient will transfer to [facility] service tomorrow. Does not appear to be in active failure. (7) Cardiac defibrillator in place: Plan: Noted (8) Hypertension: Plan: Hypertensiveurgency in the ER resolved suspect not taking meds due to N&V Continue amlodipine 10mg PO daily Continue carvedilol 25mg PO BID - notably he reports taking this as 50mg PO in the morning and occasionally taking additional doses depending on foot swelling (will need counselling on this given it was relayed to me after seeing the patient). Lisinopril and HCTZ on hold pending improvement in MICKEY Plan: VTE Prophylaxis - heparin 5000 units SQ BID Code status: Full code Diet: T2DM Disposition - continued inpatient care due to MICKEY, suspect can be discharged home tomorrow if glucose values stable on usual home insulin and no nausea or vomiting. Admission and Anticipated Discharge Date Admission Date: October 02, 2021 Subjective Patient reports not taking care of himself since the of his brother in February. Notes having a [facility] PCP and is no longer seeing Dr Mayfield. HbA1C 11.1. He reports taking increased dosing of Lantus. He reports he does not eat carbs therefore he doesn't give himself carbohydrate coverage - although on further discussion he does admit to eating fruits. Notes having fever last night with associated chills. No cough or shortness of breath. Concerned about open area from tattoo 2 weeks ago on left back of his neck and requesting antibiotic ointment for this. Review of Systems Review of Systems: All systems reviewed & are unremarkable except as noted in Subjective Neurologic: + headache(s) Physical Exam Constitutional: WD/WN, vitals as above Respiratory: normal respiratory effort, lungs clear to auscultation Cardiovascular: RRR, no murmur, no edema Gastrointestinal (Abdomen): normal bowel sounds, soft, nontender, no hepatosplenomegaly Musculoskeletal: no cyanosis or clubbing, extremities motor strength 5/5 Skin: open wound approx 2cm in center of tattooed area without surrounding cellulitis on back of left neck Psychiatric: A+Ox3, euthymic affect Results & Data Results & Data ([facility]) Vital Signs (Past 12 Hours) Vital Signs Temp Pulse Pulse Resp BP Pulse Ox 10/03/21 17:31 75 10/03/21 16:02 37.1 C 77 18 170/92 H 99 10/03/21 11:14 37.3 C 72 15 128/59 L 96 10/03/21 08:00 73 10/03/21 07:50 37.4 C 72 18 118/57 L 94 PG Care Time/CCT Total # of Minutes Spent Total Time Spent with Patient: Total time spent is greater than 50% in coordination of care (as documented) at patient's floor/unit and/or counseling patient: Coding Level of Care Code 71457 Subseq Hosp Care Lvl 2 Diagnoses Hypoglycemia associated with type 2 diabetes mellitus E11.649 Hypokalemia E87.6 Acute kidney failure N17.9 Cardiomyopathy, nonischemic I42.[address] Z95.810 Hypertension I10 Aspiration pneumonia J69.0 Nausea and vomiting R11.2
[2021-10-03] MEDS ORDERED: INSULIN GLARGINE SOLOSTAR 100 UNITS/ML 3 ML PEN SQ SCH (21:00)
[2021-10-04] MEDS: traMADol HCL 50 MG TABLET PO PRN ×2 (00:35→05:37)
[2021-10-04] MEDS: ONDANSETRON INJ 2 MG/ML 2 ML VIAL IV PRN (01:20)
[2021-10-04] MEDS: IMIPRAMINE HCL 50 MG TAB PO SCH ×2 (01:43→19:48)
[2021-10-04] MEDS: SODIUM CHLORIDE 0.9% 1000ML 1,000 ML IV SCH ×3 (05:38→21:43)
[2021-10-04 05:58] LABS: Basophils # (auto) 0.02 K/uL (0-0.2); Basophils % (auto) 0.2 %; Eosinophils # (auto) 0.13 K/uL (0-0.5); Hematocrit (blood only) 35.7 % (42-52); Hemoglobin 12.1 g/dL (14.0-18.0); Immature Granulocytes # (auto) 0.03 K/uL (0.00-0.02); Immature Granulocytes % (auto) 0.2 %; Lymphocytes # (auto) 2.73 K/uL (1.2-3.4); Lymphocytes % (auto) 21.3 %; Mean Corpuscular Hemoglobin 29.6 pg (25-34); Mean Corpuscular Hgb Conc 33.9 g/dL (32-36); Mean Corpuscular Volume 87.3 fL (80-100); Mean Platelet Volume 10.9 fL (7.4-10.4); Monocytes # (auto) 1.16 K/uL (0.11-0.59); Monocytes % (auto) 9.1 %; Neutrophils # (auto) 8.72 K/uL (1.4-6.5); Neutrophils % (auto) 68.2 %; Platelet Count 205 K/uL (130-400); RDW Coefficient of Variation 12.6 % (11.5-14.5); RDW Standard Deviation 40.4 fL (36.4-46.3); Red Blood Count 4.09 M/uL (4.7-6.1); White Blood Count 12.79 K/uL (4.8-10.8)
[2021-10-04 06:29] LABS: Calcium 8.3 mg/dl (8.5-10.1); Creatinine Clr Calc Pharmacy 67.9 ml/min; Est GFR (African American) 72.2 ml/min; Est GFR (Non-African American) 62.3 ml/min; Potassium 3.4 mmol/L (3.5-5.1)
[2021-10-04] MEDS ORDERED: POTASSIUM CHLORIDE CRTAB 20 MEQ TABCR PO STA (07:58)
[2021-10-04] MEDS: AMOXICILLIN/CLAVULANATE 875 MG TAB PO SCH ×2 (08:00→17:18)
--- NOTE | 2021-10-04 08:00 | Hospitalist Progress Note ---
Date of Service October 04, 2021 Assessment & Plan (1) MICKEY (acute kidney injury): Plan: (1) Nausea and vomiting - Resolved ?due to moderate constipation seen on CT vs. hypoglycemia (unclear if cause or result). No concerning acute pathology on CT other than groundglass patchy consolidation seen at both lung bases. (2) Hypoglycemia associated with type 2 diabetes mellitus -likely secondary to increased insulin dose prior to admission +/- N&V -glucose 22 on presentation to ED with recheck of 26 -symptomatically improved following administration of IV dextrose on admission -at home uses Lantus 45U HS Goal BSG Range: Low 100mg/dL, High 140mg/dL -HbA1C 11.1 - consult furnace repairer, glycemic pharmacist - cont. to monitor BS while inpt (3) Acute kidney failure -baseline Cr 1.1 -Cr on admission of 2.48 -> 1.75 -> 1.3 -likely in the setting of dehydration in addition to anti-hypertensive medications/diuretics -in ED received 3L of IVF rehydration without heart failure - Continued w/ NSS @125 ml/hr - will stop - may need careful reintroduction of diuretics given cardiomyopathy (4) Aspiration pneumonia: Suspect mostly aspiration at this stage as he was feeling well the day prior to admission therefore the consolidation likely happened as a result of N&V and his sudden jump in WBC reflects this. But given fever at night, significantly elevated WBC and diabetes will cover for pneumonia with Augmentin (5) Hypokalemia: replete and monitor Suspect secondary to vomiting in setting of HCTZ. (6) Cardiomyopathy, nonischemic: Continue carvedilol 50 mg daily - per pt. Will defer addition of Entresto to his outpatient physicians Does not appear to be in active failure. (7) Cardiac defibrillator in place: Noted (8) Hypertension: Hypertensive urgency in the ER resolved suspect not taking meds due to N&V Continue amlodipine 10mg PO daily Continue carvedilol 50mg PO in the morning (per pt) Lisinopril and HCTZ on hold pending improvement in MICKEY Plan: VTE Prophylaxis - heparin 5000 units SQ BID Code status: Full code Diet: T2DM Disposition - plan to DC home in 1-2 days Admission and Anticipated Discharge Date Admission Date: October 02, 2021 Subjective Patient seen in follow-up of hypoglycemia, MICKEY, aspiration pneumonia Currently laying in bed, in no acute distress Denies fevers chills, chest pain, shortness of breath, abdominal pain, nausea vomiting Review of Systems Review of Systems: All systems reviewed & are unremarkable except as noted in Subjective Physical Exam Physical Exam: Constitutional:L WD/WN, vitals as a hussain Respiratory: normal respiratory effort, lungs jose alfredo ar to auscultation Cardiovascular:L RRR, no murmur, no edema Gastrointestinal ( Abdomen): normal bowel sound s, soft, nontender Musculoskeletal: extremities motor strength 5/5 Skin: open wound approx 2cm in center of t attooed area witho ut surrounding michael lulitis on back of left neck Psychiatric: A+Ox3, euthymic af fect Results & Data Results & Data ([facility]) Vital Signs (Past 12 Hours) Vital Signs Temp Pulse Pulse Resp BP Pulse Ox Pulse Ox 10/04/21 07:23 73 10/04/21 03:02 37 C 76 18 156/75 H 94 10/04/21 00:34 96 10/03/21 23:01 37.1 C 70 18 119/75 96 10/03/21 22:52 68 Laboratory Results 10/04/21 10/04/21 10/04/21 Range/Units 07:24 05:41 05:41 WBC 12.79 H D (4.8-10.8) K/uL RBC 4.09 L (4.7-6.1) M/uL Hgb 12.1 L (14.0-18.0) g/dL Hct 35.7 L (42-52) % MCV 87.3 (80-100) fL MCH 29.6 (25-34) pg MCHC 33.9 (32-36) g/dL RDW Std Deviation 40.4 (36.4-46.3) fL RDW Coeff of Saulo 12.6 (11.5-14.5) % Plt Count 205 (130-400) K/uL MPV 10.9 H (7.4-10.4) fL Immature Gran % (Auto) 0.2 % Neut % (Auto) 68.2 % Lymph % (Auto) 21.3 % [place] % (Auto) 9.1 % Eos % (Auto) 1.0 % Baso % (Auto) 0.2 % Neut # (Auto) 8.72 H (1.4-6.5) K/uL Lymph # (Auto) 2.73 (1.2-3.4) K/uL [place] # (Auto) 1.16 H (0.11-0.59) K/uL Eos # (Auto) 0.13 (0-0.5) K/uL Baso # (Auto) 0.02 (0-0.2) K/uL Immature Gran # (Auto) 0.03 H (0.00-0.02) K/uL Sodium 132 L (136-145) mmol/L Potassium 3.4 L (3.5-5.1) mmol/L Chloride 99 (98-107) mmol/L Carbon Dioxide 25 (21-32) mmol/L Anion Gap 8 (3-11) BUN 19 (6-23) mg/dl Creatinine 1.27 D (0.6-1.4) mg/dl Est Cr Clr Drug Dosing 67.9 ml/min Est GFR ( Amer) 72.2 ml/min Est GFR (Non-Af Amer) 62.3 ml/min BUN/Creatinine Ratio 15.0 (10-20) Glucose 199 H (70-99(Fasting)) mg/dl POC Glucose 235 H (70-99) mg/dl Calcium 8.3 L (8.5-10.1) mg/dl Urine Color Urine Appearance (Clear) Urine pH (4.5-7.5) Ur Specific [place] (1.000-1.030) Urine Protein (Negative) Urine Glucose (UA) (Negative) Urine Ketones (Negative) Urine Blood (Negative) Urine Nitrite (Negative) Urine Bilirubin (Negative) Urine Urobilinogen (Negative) Ur Leukocyte Esterase (Negative) Urine WBC (Auto) (0-5) /hpf Urine RBC (Auto) (0-4) /hpf U Hyaline Cast (Auto) (0-5) /lpf U Epithel Cells (Auto) (0-5) /lpf Urine Bacteria (Auto) (Negative) 10/04/21 10/03/21 10/03/21 Range/Units 02:24 19:56 16:34 WBC (4.8-10.8) K/uL RBC (4.7-6.1) M/uL Hgb (14.0-18.0) g/dL Hct (42-52) % MCV (80-100) fL MCH (25-34) pg MCHC (32-36) g/dL RDW Std Deviation (36.4-46.3) fL RDW Coeff of Saulo (11.5-14.5) % Plt Count (130-400) K/uL MPV (7.4-10.4) fL Immature Gran % (Auto) % Neut % (Auto) % Lymph % (Auto) % [place] % (Auto) % Eos % (Auto) % Baso % (Auto) % Neut # (Auto) (1.4-6.5) K/uL Lymph # (Auto) (1.2-3.4) K/uL [place] # (Auto) (0.11-0.59) K/uL Eos # (Auto) (0-0.5) K/uL Baso # (Auto) (0-0.2) K/uL Immature Gran # (Auto) (0.00-0.02) K/uL Sodium (136-145) mmol/L Potassium (3.5-5.1) mmol/L Chloride (98-107) mmol/L Carbon Dioxide (21-32) mmol/L Anion Gap (3-11) BUN (6-23) mg/dl Creatinine (0.6-1.4) mg/dl Est Cr Clr Drug Dosing ml/min Est GFR ( Amer) ml/min Est GFR (Non-Af Amer) ml/min BUN/Creatinine Ratio (10-20) Glucose (70-99(Fasting)) mg/dl POC Glucose 114 H 198 H 272 H (70-99) mg/dl Calcium (8.5-10.1) mg/dl Urine Color Urine Appearance (Clear) Urine pH (4.5-7.5) Ur Specific [place] (1.000-1.030) Urine Protein (Negative) Urine Glucose (UA) (Negative) Urine Ketones (Negative) Urine Blood (Negative) Urine Nitrite (Negative) Urine Bilirubin (Negative) Urine Urobilinogen (Negative) Ur Leukocyte Esterase (Negative) Urine WBC (Auto) (0-5) /hpf Urine RBC (Auto) (0-4) /hpf U Hyaline Cast (Auto) (0-5) /lpf U Epithel Cells (Auto) (0-5) /lpf Urine Bacteria (Auto) (Negative) 10/03/21 10/03/21 Range/Units 15:53 11:28 WBC (4.8-10.8) K/uL RBC (4.7-6.1) M/uL Hgb (14.0-18.0) g/dL Hct (42-52) % MCV (80-100) fL MCH (25-34) pg MCHC (32-36) g/dL RDW Std Deviation (36.4-46.3) fL RDW Coeff of Saulo (11.5-14.5) % Plt Count (130-400) K/uL MPV (7.4-10.4) fL Immature Gran % (Auto) % Neut % (Auto) % Lymph % (Auto) % [place] % (Auto) % Eos % (Auto) % Baso % (Auto) % Neut # (Auto) (1.4-6.5) K/uL Lymph # (Auto) (1.2-3.4) K/uL [place] # (Auto) (0.11-0.59) K/uL Eos # (Auto) (0-0.5) K/uL Baso # (Auto) (0-0.2) K/uL Immature Gran # (Auto) (0.00-0.02) K/uL Sodium (136-145) mmol/L Potassium (3.5-5.1) mmol/L Chloride (98-107) mmol/L Carbon Dioxide (21-32) mmol/L Anion Gap (3-11) BUN (6-23) mg/dl Creatinine (0.6-1.4) mg/dl Est Cr Clr Drug Dosing ml/min Est GFR ( Amer) ml/min Est GFR (Non-Af Amer) ml/min BUN/Creatinine Ratio (10-20) Glucose (70-99(Fasting)) mg/dl POC Glucose 270 H (70-99) mg/dl Calcium (8.5-10.1) mg/dl Urine Color Yellow Urine Appearance Clear (Clear) Urine pH 5.0 (4.5-7.5) Ur Specific [place] 1.020 (1.000-1.030) Urine Protein 1+ H (Negative) Urine Glucose (UA) 2+ H (Negative) Urine Ketones Trace H (Negative) Urine Blood Negative (Negative) Urine Nitrite Negative (Negative) Urine Bilirubin Negative (Negative) Urine Urobilinogen Negative (Negative) Ur Leukocyte Esterase Negative (Negative) Urine WBC (Auto) 1-5 (0-5) /hpf Urine RBC (Auto) 0-4 (0-4) /hpf U Hyaline Cast (Auto) 5-10 H (0-5) /lpf U Epithel Cells (Auto) 5-10 H (0-5) /lpf Urine Bacteria (Auto) Negative (Negative) Medications Administered Current Inpatient Medications Acetaminophen (Acetaminophen 325 Mg Tab) 650 mg PO Q4H PRN PRN Reason: Pain or Fever Stop: 11/02/21 00:33 Al Hydrox/Mg Hydrox/Simethicone (Aluminum/Magnesium Susp 30 Ml Udc) 15 ml PO Q4H PRN PRN Reason: Dyspepsia Stop: 11/02/21 00:33 Amlodipine Besylate (Amlodipine Besylate 5 Mg Tab) 10 mg PO DAILY PANCHO Stop: 11/02/21 08:59 Last Admin: 10/03/21 09:04 Dose: 10 mg Documented by: Amoxicillin/Clavulanate Potassium (Amoxicillin/Clavulanate 875 Mg Tab) 1 tab PO BIDM [facility] Stop: 10/10/21 16:59 Last Admin: 10/03/21 16:59 Dose: 1 tab Documented by: Bacitracin (Bacitracin Oint 15 Gm Tube) 1 appln EXT BID [facility] Stop: 11/02/21 12:59 Last Admin: 10/03/21 20:58 Dose: 1 appln Documented by: Carvedilol (Carvedilol 25 Mg Tab) 25 mg PO BID [facility] Stop: 11/02/21 00:33 Last Admin: 10/03/21 20:56 Dose: 25 mg Documented by: Dextrose (Dextrose 50% 50 Ml Syringe) 25 - 50 ml IV UD PRN; Protocol PRN Reason: Hypoglycemia Protocol Stop: 11/02/21 00:33 Gabapentin (Gabapentin 300 Mg Cap) 300 mg PO HS [facility] Stop: 11/02/21 00:33 Last Admin: 10/03/21 20:57 Dose: 300 mg Documented by: Glucagon (Glucagon For Inj 1 Mg Vial) 1 mg SQ UD PRN; Protocol PRN Reason: Hypoglycemia Protocol Stop: 11/02/21 00:33 Glucose (Glucose 10 Tabs/Tube) 4 - 8 tabs PO UD PRN; Protocol PRN Reason: Hypoglycemia Protocol Stop: 11/02/21 00:33 Glucose (Glucose 40% Gel 15 Gm Tube) 15 - 30 gm PO UD PRN; Protocol PRN Reason: Hypoglycemia Protocol Stop: 11/02/21 00:33 Heparin Sodium (Porcine) (Heparin Sod 5,000 Unit/0.5 Ml Vial) 5,000 units SQ Q12 PANCHO Stop: 11/02/21 08:59 Last Admin: 10/03/21 20:57 Dose: 5,000 units Documented by: Sodium Chloride (Nss 1000ml) 1,000 mls @ 125 mls/hr IV .Q8H PANCHO Stop: 11/02/21 13:14 Last Admin: 10/04/21 05:38 Dose: 125 mls/hr Documented by: Imipramine HCl (Imipramine Hcl 50 Mg Tab) 100 mg PO HS [facility] Stop: 11/03/21 01:29 Last Admin: 10/04/21 01:43 Dose: 100 mg Documented by: Insulin Aspart (Insulin Aspart Per Unit) 0 units SC ACHS PANCHO Stop: 11/02/21 11:29 Last Admin: 10/03/21 22:11 Dose: 4 units Documented by: Insulin Glargine (Insulin Glargine Solostar 100 Units/Ml 3 Ml Pen) 45 units SQ HS [facility] Stop: 11/02/21 20:59 Last Admin: 10/03/21 20:56 Dose: 45 units Documented by: Magnesium Hydroxide (Magnesium Hydroxide Susp 30 Ml Udc) 30 ml PO Q12H PRN PRN Reason: Constipation Stop: 11/02/21 00:33 Miscellaneous (Carbohydrates For Hypoglycemia ) 15 - 30 gm PO UD PRN PRN Reason: Hypoglycemia Protocol Stop: 11/02/21 00:33 Morphine Sulfate (Morphine Sulfate 2 Mg/Ml Carp) 2 mg IV Q30M PRN PRN Reason: Chest Pain Stop: 10/17/21 00:33 Nitroglycerin (Nitroglycerin Sl 0.4 Mg/Tab Tab) 0.4 mg SL UD PRN PRN Reason: Chest Pain Stop: 11/02/21 00:33 Ondansetron HCl (Ondansetron Inj 2 Mg/Ml 2 Ml Vial) 4 mg IV Q6H PRN PRN Reason: Nausea Stop: 11/02/21 00:33 Last Admin: 10/04/21 01:20 Dose: 4 mg Documented by: Pantoprazole Sodium (Pantoprazole 40 Mg Tab) 40 mg PO DAILY PANCHO Stop: 11/03/21 08:59 Polyethylene Glycol (Polyethylene (Miralax) 17 Gm Pack) 17 gm PO DAILY PRN PRN Reason: Constipation Stop: 11/02/21 00:33 Tramadol HCl (Tramadol Hcl 50 Mg Tablet) 50 mg PO Q4H PRN PRN Reason: Pain Stop: 11/02/21 15:13 Last Admin: 10/04/21 05:37 Dose: 50 mg Documented by:
[2021-10-04] MEDS: INSULIN ASPART PER UNIT SC SCH ×4 (09:16→21:07)
[2021-10-04] MEDS: BACITRACIN OINT 15 GM TUBE EXT SCH ×2 (09:27→19:36)
[2021-10-04] MEDS: amLODIPine BESYLATE 5 MG TAB PO SCH (09:27)
[2021-10-04] MEDS: carvediloL 25 MG TAB PO SCH ×2 (09:28→19:44)
[2021-10-04] MEDS: PANTOprazole 40 MG TAB PO SCH (09:28)
[2021-10-04] MEDS: HEPARIN SOD 5,000 UNIT/0.5 ML VIAL SQ SCH ×2 (09:29→19:51)
[2021-10-04] MEDS ORDERED: PHARMACY GLYCEMIC MGMT CONSULT PRN (10:44)
--- NOTE | 2021-10-04 13:00 | Pharmacy Report ---
Pharmacy Glycemic Short Note 2 - Date of Service October 04, 2021 - Glycemic Short BSG Results (Last 24 hours): 10/03/21 10/03/21 10/04/21 16:34 19:56 02:24 Glucose POC Glucose 272 H 198 H 114 H 10/04/21 10/04/21 10/04/21 05:41 07:24 11:28 Glucose 199 H POC Glucose 235 H 165 H OUTPATIENT ANTIDIABETIC REGIMEN: * Lantus 45 units HS, Humalog 12-14 AC * A1c 11.1% ASSESSMENT: * Patient's BSG initially low on arrival, was given dextrose infusion/ D50 doses, lantus held 6/8 PM * BSGs yesterday elevated in the 200s, suspect from missed dose/dextrose * Patient did receive their home dose of lantus last night, fasting this AM still elevated, however will be cautious with increase as patient is behind PLAN FOR INPATIENT GLYCEMIC CONTROL: * Hold outpatient oral diabetes medications * Basal insulin * Lantus 45/50 units qpm * Bolus insulin * NovoLog per scale ACHS or Q6hrs while NPO * Goal Range: Low 110 mg/dL - High 140 mg/dL * Correction Factor: 15 mg/dL/unit * Nutritional / Prandial insulin per carb ratio of 1 unit per 5 grams CHO consumed
[2021-10-04] MEDS: GABAPENTIN 300 MG CAP PO SCH (19:50)
[2021-10-04] MEDS ORDERED: IBUPROFEN 200 MG TAB PO STA (20:59)
[2021-10-04] MEDS ORDERED: INSULIN GLARGINE SOLOSTAR 100 UNITS/ML 3 ML PEN SQ SCH (21:00)
[2021-10-04] MEDS ORDERED: amLODIPine BESYLATE 5 MG TAB PO SCH (21:00)
[2021-10-04] MEDS ORDERED: guaiFENesin/DEXTROM SYRUP 100MG/10MG 5ML UDC PO PRN (22:14)
[2021-10-05] MEDS: INSULIN ASPART PER UNIT SC SCH ×4 (00:17→12:42)
[2021-10-05] MEDS: SODIUM CHLORIDE 0.9% 1000ML 1,000 ML IV SCH (05:49)
[2021-10-05 06:57] LABS: BUN Creatinine Ratio 9.9 (10-20); Calcium 8.5 mg/dl (8.5-10.1); Creatinine Clr Calc Pharmacy 65.2 ml/min; Est GFR (African American) 76.6 ml/min; Est GFR (Non-African American) 66.1 ml/min; Magnesium 1.6 mg/dl (1.7-2.4); Phosphorus 2.1 mg/dl (2.5-4.9); Potassium 3.7 mmol/L (3.5-5.1)
[2021-10-05] MEDS: AMOXICILLIN/CLAVULANATE 875 MG TAB PO SCH (08:00)
[2021-10-05] MEDS: PANTOprazole 40 MG TAB PO SCH (08:01)
[2021-10-05] MEDS: HEPARIN SOD 5,000 UNIT/0.5 ML VIAL SQ SCH (08:01)
[2021-10-05] MEDS: BACITRACIN OINT 15 GM TUBE EXT SCH (08:01)
[2021-10-05] MEDS ORDERED: carvediloL 25 MG TAB PO SCH (09:00)
--- NOTE | 2021-10-05 09:25 | Hospitalist Progress Note ---
Date of Service October 05, 2021 Assessment & Plan (1) MICKEY (acute kidney injury): Plan: (1) Nausea and vomiting - Resolved ?due to moderate constipation seen on CT vs. hypoglycemia (unclear if cause or result). No concerning acute pathology on CT other than groundglass patchy consolidation seen at both lung bases. (2) Hypoglycemia associated with type 2 diabetes mellitus -likely secondary to increased insulin dose prior to admission +/- N&V -glucose 22 on presentation to ED with recheck of 26 -symptomatically improved following administration of IV dextrose on admission -at home uses Lantus 45U HS Goal BSG Range: Low 100mg/dL, High 140mg/dL -HbA1C 11.1 - consult outreach educator, glycemic pharmacist - cont. to monitor BS while inpt (3) Acute kidney failure- Resolved -baseline Cr 1.1 -Cr on admission of 2.48 -> 1.75 -> 1.3 -likely in the setting of dehydration in addition to anti-hypertensive medications/diuretics -in ED received 3L of IVF rehydration without heart failure - Continued w/ NSS @125 ml/hr - will stop - may need careful reintroduction of diuretics given cardiomyopathy (4) Aspiration pneumonia: Suspect mostly aspiration at this stage as he was feeling well the day prior to admission therefore the consolidation likely happened as a result of N&V and his sudden jump in WBC reflects this. But given fever at night, significantly elevated WBC and diabetes will cover for pneumonia with Augmentin (5) Hypokalemia: replete and monitor Suspect secondary to vomiting in setting of HCTZ. (6) Cardiomyopathy, nonischemic: Continue carvedilol 50 mg daily - per pt. Will defer addition of Entresto to his outpatient physicians Does not appear to be in active failure. (7) Cardiac defibrillator in place: Noted (8) Hypertension: Hypertensive urgency in the ER resolved suspect not taking meds due to N&V Continue amlodipine 10mg PO daily Continue carvedilol 50mg PO in the morning (per pt) Lisinopril and HCTZ on hold pending improvement in MICKEY Plan: VTE Prophylaxis - heparin 5000 units SQ BID Code status: Full code Diet: T2DM Disposition - plan to [place] home Admission and Anticipated Discharge Date Admission Date: October 02, 2021 Subjective Patient seen in follow-up of hypoglycemia, MICKEY, aspiration pneumonia Currently laying in bed, in no acute distress Denies fevers chills, chest pain, shortness of breath, abdominal pain, nausea vomiting Review of Systems Review of Systems: All systems reviewed & are unremarkable except as noted in Subjective Physical Exam Physical Exam: Constitutional:L WD/WN, vitals as a hussain Respiratory: normal respiratory effort, lungs jose alfredo ar to auscultation Cardiovascular:L RRR, no murmur, no edema Gastrointestinal ( Abdomen): normal bowel sound s, soft, nontender Musculoskeletal: extremities motor strength 5/5 Skin: open wound approx 1.5cm in center of tattooed area wit hout surrounding c ellulitis on back of neck Psychiatric: A+Ox3, euthymic af fect Results & Data Results & Data ([facility]) Vital Signs (Past 12 Hours) Vital Signs Temp Pulse Pulse Resp BP Pulse Ox 10/05/21 07:50 62 10/05/21 03:40 36.6 C 68 18 133/79 94 10/05/21 01:13 72 10/04/21 23:01 36.9 C 71 18 159/81 H 94 Laboratory Results 10/05/21 10/05/21 10/05/21 Range/Units 07:41 05:28 03:43 Sodium 134 L (136-145) mmol/L Potassium 3.7 (3.5-5.1) mmol/L Chloride 99 (98-107) mmol/L Carbon Dioxide 30 (21-32) mmol/L Anion Gap 5 (3-11) BUN 12 (6-23) mg/dl Creatinine 1.21 (0.6-1.4) mg/dl Est Cr Clr Drug Dosing 65.2 ml/min Est GFR ( Amer) 76.6 ml/min Est GFR (Non-Af Amer) 66.1 ml/min BUN/Creatinine Ratio 9.9 L (10-20) Glucose 158 H (70-99(Fasting)) mg/dl POC Glucose 97 179 H (70-99) mg/dl Calcium 8.5 (8.5-10.1) mg/dl Phosphorus 2.1 L D (2.5-4.9) mg/dl Magnesium 1.6 L (1.7-2.4) mg/dl 10/04/21 10/04/21 10/04/21 Range/Units 23:35 20:19 16:24 Sodium (136-145) mmol/L Potassium (3.5-5.1) mmol/L Chloride (98-107) mmol/L Carbon Dioxide (21-32) mmol/L Anion Gap (3-11) BUN (6-23) mg/dl Creatinine (0.6-1.4) mg/dl Est Cr Clr Drug Dosing ml/min Est GFR ( Amer) ml/min Est GFR (Non-Af Amer) ml/min BUN/Creatinine Ratio (10-20) Glucose (70-99(Fasting)) mg/dl POC Glucose 253 H 217 H 136 H (70-99) mg/dl Calcium (8.5-10.1) mg/dl Phosphorus (2.5-4.9) mg/dl Magnesium (1.7-2.4) mg/dl 10/04/21 10/04/21 10/04/21 Range/Units 15:22 14:54 11:28 Sodium (136-145) mmol/L Potassium (3.5-5.1) mmol/L Chloride (98-107) mmol/L Carbon Dioxide (21-32) mmol/L Anion Gap (3-11) BUN (6-23) mg/dl Creatinine (0.6-1.4) mg/dl Est Cr Clr Drug Dosing ml/min Est GFR ( Amer) ml/min Est GFR (Non-Af Amer) ml/min BUN/Creatinine Ratio (10-20) Glucose (70-99(Fasting)) mg/dl POC Glucose 72 49 L* 165 H (70-99) mg/dl Calcium (8.5-10.1) mg/dl Phosphorus (2.5-4.9) mg/dl Magnesium (1.7-2.4) mg/dl Medications Administered Current Inpatient Medications Acetaminophen (Acetaminophen 325 Mg Tab) 650 mg PO Q4H PRN PRN Reason: Pain or Fever Stop: 11/02/21 00:33 Al Hydrox/Mg Hydrox/Simethicone (Aluminum/Magnesium Susp 30 Ml Udc) 15 ml PO Q4H PRN PRN Reason: Dyspepsia Stop: 11/02/21 00:33 Amlodipine Besylate (Amlodipine Besylate 5 Mg Tab) 10 mg PO HS PANCHO Stop: 11/03/21 20:59 Last Admin: 10/04/21 21:05 Dose: 10 mg Documented by: Amoxicillin/Clavulanate Potassium (Amoxicillin/Clavulanate 875 Mg Tab) 1 tab PO BIDM [facility] Stop: 10/10/21 16:59 Last Admin: 10/05/21 08:00 Dose: 1 tab Documented by: Bacitracin (Bacitracin Oint 15 Gm Tube) 1 appln EXT BID [facility] Stop: 11/02/21 12:59 Last Admin: 10/05/21 08:01 Dose: 1 appln Documented by: Carvedilol (Carvedilol 25 Mg Tab) 50 mg PO QAM [facility] Stop: 11/04/21 08:59 Last Admin: 10/05/21 08:01 Dose: 50 mg Documented by: Dextrose (Dextrose 50% 50 Ml Syringe) 25 - 50 ml IV UD PRN; Protocol PRN Reason: Hypoglycemia Protocol Stop: 11/02/21 00:33 Gabapentin (Gabapentin 300 Mg Cap) 300 mg PO [facility] Stop: 11/02/21 00:33 Last Admin: 10/04/21 19:50 Dose: 300 mg Documented by: Glucagon (Glucagon For Inj 1 Mg Vial) 1 mg SQ UD PRN; Protocol PRN Reason: Hypoglycemia Protocol Stop: 11/02/21 00:33 Glucose (Glucose 10 Tabs/Tube) 4 - 8 tabs PO UD PRN; Protocol PRN Reason: Hypoglycemia Protocol Stop: 11/02/21 00:33 Glucose (Glucose 40% Gel 15 Gm Tube) 15 - 30 gm PO UD PRN; Protocol PRN Reason: Hypoglycemia Protocol Stop: 11/02/21 00:33 Guaifenesin/Dextromethorphan (Guaifenesin/Dextrom Syrup 100mg/10mg 5ml Udc) 5 ml PO Q6H PRN PRN Reason: Cough Stop: 11/03/21 22:13 Last Admin: 10/04/21 22:51 Dose: 5 ml Documented by: Heparin Sodium (Porcine) (Heparin Sod 5,000 Unit/0.5 Ml Vial) 5,000 units SQ Q12 [facility] Stop: 11/02/21 08:59 Last Admin: 10/05/21 08:01 Dose: 5,000 units Documented by: Imipramine HCl (Imipramine Hcl 50 Mg Tab) 100 mg PO [facility] Stop: 11/03/21 01:29 Last Admin: 10/04/21 19:48 Dose: 100 mg Documented by: Insulin Aspart (Insulin Aspart Per Unit) 0 units SC ACHS [facility] Stop: 11/02/21 11:29 Last Admin: 10/05/21 08:01 Dose: 3 units Documented by: Insulin Glargine (Insulin Glargine Solostar 100 Units/Ml 3 Ml Pen) 0 units SQ HS [facility]; Protocol Stop: 11/02/21 20:59 Last Admin: 10/04/21 20:59 Dose: 50 units Documented by: Magnesium Hydroxide (Magnesium Hydroxide Susp 30 Ml Udc) 30 ml PO Q12H PRN PRN Reason: Constipation Stop: 11/02/21 00:33 Miscellaneous (Carbohydrates For Hypoglycemia ) 15 - 30 gm PO UD PRN PRN Reason: Hypoglycemia Protocol Stop: 11/02/21 00:33 Last Admin: 10/04/21 14:55 Dose: 30 gm Documented by: Miscellaneous Information (Pharmacy Glycemic Mgmt Consult) 1 ea N/A UD PRN PRN Reason: Consult Stop: 11/03/21 10:43 Morphine Sulfate (Morphine Sulfate 2 Mg/Ml Carp) 2 mg IV Q30M PRN PRN Reason: Chest Pain Stop: 10/17/21 00:33 Nitroglycerin (Nitroglycerin Sl 0.4 Mg/Tab Tab) 0.4 mg SL UD PRN PRN Reason: Chest Pain Stop: 11/02/21 00:33 Ondansetron HCl (Ondansetron Inj 2 Mg/Ml 2 Ml Vial) 4 mg IV Q6H PRN PRN Reason: Nausea Stop: 11/02/21 00:33 Last Admin: 10/04/21 01:20 Dose: 4 mg Documented by: Pantoprazole Sodium (Pantoprazole 40 Mg Tab) 40 mg PO DAILY [facility] Stop: 11/03/21 08:59 Last Admin: 10/05/21 08:01 Dose: 40 mg Documented by: Polyethylene Glycol (Polyethylene (Miralax) 17 Gm Pack) 17 gm PO DAILY PRN PRN Reason: Constipation Stop: 11/02/21 00:33 Tramadol HCl (Tramadol Hcl 50 Mg Tablet) 50 mg PO Q4H PRN PRN Reason: Pain Stop: 11/02/21 15:13 Last Admin: 10/04/21 05:37 Dose: 50 mg Documented by:
[2021-10-05] MEDS ORDERED: MAGNESIUM SULFATE / D5W 1 GM/100 ML BAG IV ONE (09:29)
[2021-10-05 09:36] LABS: Hematocrit (blood only) 36.2 % (42-52); Hemoglobin 12.4 g/dL (14.0-18.0); Mean Corpuscular Hgb Conc 34.3 g/dL (32-36); Mean Corpuscular Volume 87.7 fL (80-100); Mean Platelet Volume 11.9 fL (7.4-10.4); Platelet Count 222 K/uL (130-400); RDW Coefficient of Variation 12.6 % (11.5-14.5); RDW Standard Deviation 40.6 fL (36.4-46.3); Red Blood Count 4.13 M/uL (4.7-6.1); White Blood Count 6.85 K/uL (4.8-10.8)
[2021-10-05] MEDS ORDERED: lisinopril 20 MG TAB PO STA (10:40)
--- NOTE | 2021-10-05 10:44 | Discharge Summary ---
Date of Service October 05, 2021 Admission HPI Per Admitting Provider Harshad Vuong is a 56y/o with past medical history significant for type 2 diabetes, nonischemic cardiomyopathy, hyperlipidemia, coronary artery disease, hypertension, diabetic peripheral neuropathy; who presented to the ED earlier in the day following development of nausea and vomiting over the course of 1 hour. Notes that he had been feeling unwell throughout the day as his blood sugars have been off. Recently did lose his glucometer and had not secured another 1 had been taking his insulin still regularly but was having to estimate how much insulin he was needing. States that he typically takes 45 units of Lantus nightly but occasionally will split this to either have some during the morning and then some at night in order to limit his total amount of insulin if he feels like he does not need it. During the day he takes anywhere between 10 to 15 units 3 times a day with meals. Earlier today following his blood sugars were in the 500s and so he took 45 units of Humalog and then later in the day felt like his blood sugars were still high and so he took an additional 30 units. Thinks his blood sugars were around 240 at the time when he took the additional 30 units of rapid acting insulin. Then was eating at sheets when he noticed that he was persistently nauseous and no matter what he ate he felt like he could not get his blood sugars up. In the ED had initial blood sugars of 22 with correction after administration of dextrose. Continuing to have feeling of nausea and chills. States he was not having these prior to earlier today. Admission Exam Per Admitting Provider Harshad Vuong is a 56y/o with past medical history significant for type 2 diabetes, nonischemic cardiomyopathy, hyperlipidemia, coronary artery disease, hypertension, diabetic peripheral neuropathy; who presented to the ED earlier in the day following development of nausea and vomiting over the course of 1 hour. Notes that he had been feeling unwell throughout the day as his blood sugars have been off. Recently did lose his glucometer and had not secured another 1 had been taking his insulin still regularly but was having to estimate how much insulin he was needing. States that he typically takes 45 units of Lantus nightly but occasionally will split this to either have some during the morning and then some at night in order to limit his total amount of insulin if he feels like he does not need it. During the day he takes anywhere between 10 to 15 units 3 times a day with meals. Earlier today following his blood sugars were in the 500s and so he took 45 units of Humalog and then later in the day felt like his blood sugars were still high and so he took an additional 30 units. Thinks his blood sugars were around 240 at the time when he took the additional 30 units of rapid acting insulin. Then was eating at sheets when he noticed that he was persistently nauseous and no matter what he ate he felt like he could not get his blood sugars up. In the ED had initial blood sugars of 22 with correction after administration of dextrose. Continuing to have feeling of nausea and chills. States he was not having these prior to earlier today. Principal Diagnosis Hypoglycemia MICKEY Discharge Exam Constitutional: WD/WN, vitals as above Respiratory: normal respiratory effort, lungs clear to auscultation Cardiovascular: RRR, no murmur, no edema Gastrointestinal (Abdomen): normal bowel sounds, soft, nontender Musculoskeletal: extremities motor strength 5/5 Skin: open wound approx 1.5cm in center of tattooed area without surrounding cellulitis on back of neck Psychiatric: A+Ox3, euthymic affect Discharge Data Allergies Allergy/AdvReac Type Severity Reaction Status Date / Time peanut Allergy Severe Anaphylaxis Verified 10/02/21 17:24 prednisone Allergy Severe SEVERE GI Verified 10/02/21 17:24 UPSET acetaminophen AdvReac Intermediate upset Verified 10/02/21 17:24 stomach Consultations 10/02/21 20:01 ED Decision to Admit Stat Ordered Studies 10/02/21 17:07 CT head/brain wo con Stat IMPRESSION: There is no hemorrhage, mass effect, or evidence of acute territorial ischemia by CT criteria. 10/02/21 18:24 CT abd pelvis wo con Stat FINDINGS: Lung bases: The heart is enlarged and and without pericardial effusion. Pacemaker leads are noted. Patchy groundglass consolidation is present at both lung bases. No pleural effusion is identified. There is a small to moderate hiatal hernia. Liver: The unenhanced liver is normal in size, contour, and attenuation. There is no intrahepatic biliary ductal dilatation. Gallbladder: Unremarkable. Spleen: Normal in size and attenuation. Pancreas: Unremarkable. Adrenal glands: Unremarkable. Kidneys: The unenhanced kidneys are normal in size and without hydronephrosis. There are at least 5 tiny nonobstructing calculi in the right kidney and at least 4 tiny nonobstructing calculi in the left kidney which measure up to 3 mm. No ureteral stone is seen. An 11 mm cyst is noted in the left kidney. Abdominal vasculature: The abdominal aorta is normal in course and caliber noting mild to moderate atherosclerotic calcification. Bowel: There is moderate colonic fecal retention. No bowel obstruction is seen. The appendix is well-visualized and normal. Peritoneum: There is no intraperitoneal free air or abdominal ascites. There is a fat-containing umbilical hernia. Foci of induration within the ventral abdominal wall are likely to subcutaneous injections. Lymphadenopathy: None. Pelvic viscera: The prostate gland is markedly enlarged and heterogeneous noting median lobe hypertrophy. The bladder wall is thickened and trabeculated indicating chronic outlet obstruction. There are small bilateral fat-containing inguinal hernias. Skeletal structures: No lytic or blastic lesions are seen. IMPRESSION: 1. Patchy groundglass consolidation is seen at both lung bases. The appearance is typical for an infectious/inflammatory pneumonitis and clinical correlation will be required. 2. No acute infectious or inflammatory findings are identified in the abdomen or pelvis. 3. Bilateral nephrolithiasis. 4. Cardiomegaly and cardiac pacemaker. 5. Moderate constipation. 6. Prostatomegaly with evidence of chronic bladder outlet obstruction. 7. Additional findings as above. Diabetes Follow up Diabetes Follow-up Needed for HgbA1c >9% Hospital Course (1) MICKEY (acute kidney injury): (1) Nausea and vomiting - Resolved ?due to moderate constipation seen on CT vs. hypoglycemia (unclear if cause or result). No concerning acute pathology on CT other than groundglass patchy consolidation seen at both lung bases. (2) Hypoglycemia associated with type 2 diabetes mellitus -likely secondary to increased insulin dose prior to admission +/- N&V -glucose 22 on presentation to ED with recheck of 26 -symptomatically improved following administration of IV dextrose on admission -at home uses Lantus 45U HS Goal BSG Range: Low 100mg/dL, High 140mg/dL -HbA1C 11.1 - consult service electrician, glycemic pharmacist - cont. to monitor BS while inpt (3) Acute kidney failure- Resolved -baseline Cr 1.1 -Cr on admission of 2.48 -> 1.75 -> 1.3 -likely in the setting of dehydration in addition to anti-hypertensive medications/diuretics -in ED received 3L of IVF rehydration without heart failure - Continued w/ NSS @125 ml/hr - will stop - may need careful reintroduction of diuretics given cardiomyopathy -We will start with lisinopril 20 mg daily, hold HCTZ on discharge (4) Aspiration pneumonia: Suspect mostly aspiration at this stage as he was feeling well the day prior to admission therefore the consolidation likely happened as a result of N&V and his sudden jump in WBC reflects this. But given fever at night, significantly elevated WBC and diabetes will cover for pneumonia with Augmentin (5) Hypokalemia: replete and monitor Suspect secondary to vomiting in setting of HCTZ. (6) Cardiomyopathy, nonischemic: Continue carvedilol 50 mg daily - per pt. Will defer addition of Entresto to his outpatient physicians Does not appear to be in active failure. (7) Cardiac defibrillator in place: Noted (8) Hypertension: Hypertensive urgency in the ER resolved suspect not taking meds due to N&V Continue amlodipine 10mg PO daily Continue carvedilol 50mg PO in the morning (per pt) Lisinopril and HCTZ on hold pending improvement in MICKEY -We will start with lisinopril 20 mg daily, hold HCTZ on discharge Plan: VTE Prophylaxis - heparin 5000 units SQ BID Code status: Full code Diet: T2DM Disposition - plan to [place] home Total Time Total Time Spent Total Time Spent (In Minutes): 40 Discharge Plan Discharge Items Patient Disposition: Home - Self-Care Reason For Visit: HYPOGLYCEMIA, MICKEY Discharge Diagnosis: Hypoglycemia MICKEY Activity: Per Instructions section Non-emergency contact: Primary Care Provider Call non-emergency contact if: you have any medication questions and your symptoms worsen Follow-up/Referrals: Henrique Arellano PA-C [Primary Care Provider] - Diet: Carb Consistent or DM2 and Heart Healthy Addtl Attending Provider Instructions: Follow-up with your primary care doctor within 1 week. Monitor your blood sugars, as discussed with rn bariatric. Monitor your blood pressure at home as well, record your numbers and discuss this with your primary care doctor at your next visit. Finish antibiotic treatment with Augmentin, as prescribed. Do not take hydrochlorothiazide for now, and discuss with your primary care doctor if/when you should restart this medication. Recommend to take your lisinopril at lower dose, 20 mg daily for now. Discuss further with your primary care doctor, if the dose should be increased back to 40 mg daily. It is also recommended, that you use your HumaLog at lower dose, instead of 12 to 14 units, 6 to 8 units. Discuss further with your primary care doctor the proper use of your insulin. Pending Studies at Discharge: No Stand-Alone Forms: My [facility], Smoking Cessation Medications and DC Order Prescriptions: New amoxicillin-pot clavulanate 875-125 mg tablet 1 tab PO BID 2 Days Qty: 4 RF: 0 Continued insulin glargine [Lantus U-100 Insulin] 100 unit/mL Solution 45 unit SUBCUT HS RF: 0 imipramine pamoate 100 mg Capsule 100 mg PO HS RF: 0 gabapentin 300 mg Capsule 300 mg PO HS RF: 0 omeprazole 20 mg Tablet,Delayed Release (Dr/Ec) 20 mg PO DAILY RF: 0 meclizine 25 mg Tablet 25 mg PO TID PRN (Reason: Dizziness) RF: 0 insulin lispro [Humalog KwikPen Insulin] 100 unit/mL Insulin Pen 12 - 14 unit SUBCUT AC RF: 0 tadalafil [Cialis] 20 mg Tablet 20 mg PO DAILY PRN (Reason: Erectile Dysfunction) RF: 0 Humira(CF) Pen 40 mg/0.4 mL Pen Injector Kit See Rx Instructions .ROUTE .COMPLEX RF: 0 carvedilol 25 mg tablet 25 mg PO BID RF: 0 amlodipine 10 mg tablet 10 mg PO DAILY RF: 0 Changed lisinopril 40 mg tablet 20 mg PO DAILY Qty: 90 RF: 3 Discontinued hydrochlorothiazide 12.5 mg tablet 12.5 mg PO DAILY Qty: 30 RF: 2 Discharge Orders: Discharge Order (Routine); Ordered 10/05/21 Ordered By: Orlin Mohr Admission Data Admit Date/Time: 10/02/21 20:52 Attending Provider: Orlin Mohr Admit Provider: Stefan Elaine Primary Care Provider: Henrique Arellano Other Providers: Nic Tolliver Other Interventions: Discharge Summary Assessment (RN) Last Done: 10/05/21 10:33
== END 2021-10-05 14:20 | disposition home or self-care (01) ==
LOC: ED 16:41 → SUATTDRO 20:52 → INTOOBSV 20:52 → 2E 20:52 → 2N 10-04 13:08